=== PATIENT | male | born 1970 | race Caucasian/White ===

== ENCOUNTER → 2017-04-20 20:32 | Outpatient (CLI) | payer OTHER, SELFPAY | PROVIDERS: Family Provider Internal Medicine; PCP Internal Medicine; Visit Provider Clinical Nurse Specialist | DX: G47.30 Sleep apnea, unspecified (principal); R53.83 Other fatigue; R06.83 Snoring | CPT/HCPCS: 95810 ==

== ENCOUNTER → 2017-06-15 20:00 | Outpatient (CLI) | payer OTHER, SELFPAY | PROVIDERS: Family Provider Internal Medicine; PCP Internal Medicine; Visit Provider Clinical Nurse Specialist | DX: G47.33 Obstructive sleep apnea (adult) (pediatric) (principal) | CPT/HCPCS: 95811 ==

== ENCOUNTER 2017-09-13 19:41 | Inpatient (IN) | payer OTHER, SELFPAY ==
[2017-09-13 19:42] VITALS: BP 164/117; PULSE 150; RESP 20; TEMP 36.7; O2SAT 98; BMI 34.7
--- NOTE | 2017-09-13 19:55 | EKG12_ITS ---
Test Reason : PALPS Blood Pressure : / mmHG Vent. Rate : 134 BPM Atrial Rate : 144 BPM P-R Int : 176 ms QRS Dur : 104 ms QT Int : 288 ms P-R-T Axes : 000 -49 069 degrees QTc Int : 430 ms Atrial fibrillation Left anterior fascicular block Nonspecific T wave abnormality Abnormal ECG When compared with ECG of 12-AUG-2004 12:18, Vent. rate has increased BY 63 BPM T wave inversion now evident in Inferior leads Confirmed by CONOR HAYWOOD, ISABEL ([id number]), newspaper or periodical editor HERNAN NOVA ([id number]) on 09/15/2017 9:19:02 AM Referred By: LEAH FLANAGAN Confirmed By:ISABEL PERDOMO MD
[2017-09-13 20:03] LABS: Absolute Lymphocyte Count 1.98 X10^3/ul (0.83-4.51); Absolute Neutrophil Count 5.7 X10^3/uL (2.0-7.7); Basophil# 0.02 X10^3/uL; Basophil% 0.2 % (0-1); Eosinophil# 0.08 X10^3/uL; Eosinophils% 0.9 % (0-5); Hematocrit 45.7 % (40-54); Hemoglobin 15.9 g/dl (13.0-16.5); Lymphocyte # 1.98 X10^3/ul (4.0); Lymphocyte % 23.3 % (19-41); Mean Corp Hgb Conc 34.8 g/gl (32-36); Mean Corpuscular Hgb 31.1 pg (27.0-32.0); Mean Corpuscular Volume 89.4 fL (80-94); Monocyte# 0.72 X10^3/uL; Monocyte% 8.5 % (0-10); Neutrophil # 5.68 X10^3/uL (2.7-7.7); Neutrophil % 66.9 % (47-70); Platelet Count 164 K/mm3 (150-450); RBC Distribution Width CV 12.4 % (11.6-14.6); RBC Distribution Width SD 40.2 fl (35.1-43.9); Red Blood Count 5.11 M/mm3 (4.6-6.2); White Blood Count 8.5 K/mm3 (4.4-11.0)
[2017-09-13 20:06] LABS: POSITIVE COUNT NO; POSITIVE DIFFERENTIAL NO; POSITIVE MORPHOLOGY NO
--- NOTE | 2017-09-13 20:10 | RAD_ITS ---
STUDY: X-RAY CHEST REASON FOR EXAM: Male, 47 years old. Chest pain TECHNIQUE: Single AP portable view of the chest. COMPARISON: None. FINDINGS: The lungs are clear and expanded. There is no demonstrated pleural abnormality. There is mild cardiac enlargement. Normal mediastinum and lauryn. Normal visualized pulmonary arteries. Normal visualized aortic arch and descending thoracic aorta. Normal visualized thoracic spine. Normal visualized ribs, clavicles, and shoulders. There is no demonstrated abnormality of the visualized soft tissue structures of the upper abdomen. RAD/Chest 1 View (Portable) IMPRESSION: Mild cardiomegaly. Lungs are clear. Electronically Signed: Mynor Santos DO at 20:23 EDT Tel , Service support ,
[2017-09-13 20:12] LABS: International Normalized Ratio 1.1; Prothrombin Time (Protime)PT. 13.7 SECONDS (11.7-14.9)
[2017-09-13 20:13] LABS: Partial Thromboplast Time 26.9 Seconds (24.1-36.2)
[2017-09-13] MEDS: Aspirin 81 MG TAB.CHEW 324 MG PO (20:22)
[2017-09-13] MEDS: Metoprolol Tartrate 5 MG/5 ML Vial IV ×2 (20:23→21:44)
[2017-09-13] MEDS: Enoxaparin 100 MG/ML Syringe 140 MG SC (20:23)
[2017-09-13 20:29] LABS: Anion Gap 7 (5-15); BUN 12 mg/dL (7-18); BUN/Creat Ratio 9.7 RATIO (10-20); Chloride 105 mmol/L (98-107); Creatinine, Serum 1.24 mg/dL (0.70-1.30); EST Glomerular Filtration Rate 66 mL/min (>60); Est Glom Filt Rate - Afr Amer 80 mL/min (>60); Estimated Creatinine Clearance 94.18 ml/min; Glucose 134 mg/dL (74-106); Potassium 3.3 mmol/L (3.5-5.1); Sodium Level 141 mmol/L (136-145); Thyroid Stim Hormone (TSH) 2.05 uIU/mL (0.358-3.74)
--- NOTE | 2017-09-13 20:43 | ED.DCSUM_ITS ---
- ER Visit Summary Date of Service: 09/13/17 Chief Complaint: Not feeling well since awakening this morning History of Present Illness: The patient is a 47 M with past medical history of hypertension who presents with not feeling well since this morning. When he took his blood pressure this evening he noted was high and had a high heart rate. There is no history of atrial fibrillation. He does have history of hypertension. He has no history of PE, DVT or any risk factors. He denies any leg pain or swelling. He denies fever, chills night sweats or weight loss. He denies any ocular, visual auditory symptoms. Denies trouble with speech or swallowing. He complains of a dull midsternal ache without radiation. He does report mild shortness of breath. He denies nausea, vomiting diarrhea. He denies hematemesis, melena hematochezia. He denies dysuria, frequency, urgency hematuria. He denies paresthesia, anesthesia motor weakness. I trouble with balance or gait. Denies headache. Denies any skin lesions. Physical Examination: Vital signs remarkable for blood pressure 1 6401 17 heart rate 150. He is not febrile nor is he hypoxic. BMI is 34.7. Head is atraumatic normocephalic. Pupils are equal round reactive. Extraocular muscles are intact. TMs are pearly white with landmarks noted. Nares patent with no drainage. Posterior pharynx without erythema or exudate. Uvula is midline. There is no dysphonia or dysphasia. Trachea is midline. There is no stridor with auscultation of the neck. Heart is rapid and irregular. Lungs are clear to auscultation. He has not reproducible chest pain. Abdomen is soft nontender with no hepatosplenomegaly. Lower extremity exam is remarkable for 1+ edema, which patient states is chronic. This may be secondary to obstructive sleep apnea. He states he has been using a CPAP machine at night for the last 2 months. Test Results: EKG reveals atrial fibrillation with rapid ventricular response with a left anterior fascicular block and ossific ST-T wave changes. There is motion artifact. Portable chest x-ray interpreted by nm reveals normal cardiac silhouette and mediastinum. There is no evidence of CHF or effusion. Osseous structures appear normal. CBC is unremarkable. Electro panel reveals slight decrease potassium 3.3 slight elevation of glucose 134. Coags normal. Troponin less than 0.015. TSH normal at 2.05. Emergency Department Course and Treatment: To evaluate patient's A. fib which is new onset will obtain TSH, EKG, troponin and appropriate blood work to evaluate for hyperthyroidism, cardiac ischemia versus other cause. Since he does not know the onset cardioversion is contraindicated. Treatment Plan: Patient has received 3 doses of Lopressor IV push for rate control. He is presently on an EDY inhibitor and calcium channel krystle for his blood pressure. He also received aspirin. As of 2122 heart rate is 120. Hospitalist was paged for admission to PCU Disposition: Admit PCU stepdown Impression: 1. New onset A. fib with RVR 2. Hyperglycemia and nondiabetic 3. History of hypertension This note was generated with [employer] dictation software. It may contain incorrect words, spelling, and punctuation that were not noted in review of the chart prior to signing ED Disposition - Plan for ED Patient: Chief Complaint: Palpitations Referrals: Arlene Jj MD [Primary Care Provider] -
[2017-09-13 21:43] VITALS: BP 135/88; PULSE 119; RESP 20; O2SAT 98
[2017-09-13 22:04] VITALS: BP 136/88; PULSE 114; RESP 18; O2SAT 99
[2017-09-13 22:13] VITALS: BP 126/92; PULSE 105; RESP 20; O2SAT 97
--- NOTE | 2017-09-13 22:48 | HP.PCM_ITS ---
Problem List (1) Lightheadedness Status: Acute (2) Palpitations Status: Acute History of Present Illness Date of Admission: 09/13/17 Chief Complaint: Palpitations, lightheadedness The patient is a 47 year old M who was seen in the emergency room at [facility] with chief complaint of not feeling well today. Patient further stated that he was lightheaded, had some vague chest discomfort which she described as a tightness and he also felt palpitations. Patient denied any shortness of breath, radiation of chest discomfort into his neck or down his arms, and he denied any fevers or chills. Patient states that he has had similar feelings over the past few years at times but they have resolved spontaneously. Patient is under treatment for hypertension by his family physician and also has diagnosed sleep apnea and has been on CPAP for 2 months.. Evaluation in the emergency room included an EKG which showed the patient to be in atrial fibrillation with a heart rate of approximately 150, no ischemic changes were noted, patient had a left anterior hemiblock on his EKG with nonspecific ST-T wave changes. On examination,, lungs were clear, heart rate and rhythm was irregular, patient was alert and did not appear to be in any distress. Lab work was remarkable for a potassium of 3.3, CBC was unremarkable, troponin was less than 0.015. TSH was normal at 2.05. Patient's chest x-ray was unremarkable except for some mild cardiomegaly. Patient received 3 doses of IV Lopressor 5 mg each by the emergency room physician, his ventricular rate slowed to approximately 105-110. Patient will be admitted to PCU for new onset atrial fibrillation with rapid ventricular response, he will be given a beta-krystle, he will remain on his home medications with the exception of the Norvasc which will be changed to Cardizem (this was suggested by cardiology-Dr. Laboy-who I talked with by phone mitchell, he will be consulted to participate in the patient's care), patient will have an echocardiogram performed, and finally the patient will be placed on Xarelto for anticoagulation. Patient's cardiac enzymes will be cycled starting tomorrow morning. Past Medical History Medical History: Medical History (Last Updated 04/13/17 @ 09:40 by Martha Rainey) Hypertension I10 Allergies No Known Allergies Allergy (Verified 09/13/17 19:44) Home Medications: Ambulatory Orders Medication Instructions Recorded Amlodipine [Norvasc] 10 mg PO DAILY 04/07/17 Hydrochlorothiazide [Hctz] 12.5 mg PO DAILY 04/07/17 Lisinopril [Zestril] 40 mg PO DAILY 04/07/17 Pantoprazole Sodium [Protonix] 40 mg PO DAILY 04/07/17 Multivitamin [Daily Multiple 1 tab PO DAILY 09/13/17 Vitamin] Surgical History: Surgical History (Last Updated 04/13/17 @ 10:05 by Martha Rainey) History of cataract Z86.69 History of vasectomy Z98.52 gallbladder removed Surgical History: cataract, cholecystectomy, tonsillectomy, - - Vasectomy Psychiatric History: No pertinent psych hx Lives: Spouse/ Significant Other Smoking Status: Never smoker Tobacco Use: Non-smoker Alcohol: None Drugs: None - *Family History Maternal Family History: Family History (Last Updated 04/13/17 @ 10:06 by Martha Rainey) Mother Hypertension Diabetes Cancer History Items: Diabetes, Hypertension Paternal Family History: Family History (Last Updated 04/13/17 @ 10:06 by Martha Rainey) Mother Hypertension Diabetes Cancer History Items: No pertinent history Review of Systems Constitutional: Reports: Malaise. Denies: Anorexia, Chills, Fever, Night Sweats , Weakness, Weight Change, Fatigue Eyes: Denies: Blurred vision, Cataracts, Conjunctivae Inflammation, Double vision, Drainage HEENT: Denies: Difficulty Swallowing, Dysphasia, Ear Pain, Eye Pain, Head Aches , Hearing Changes, Nasal bleeding, Nasal Congestion, Post Nasal Drip Cardiovascular: Reports: Chest Pain, Chest Tightness, Light Headedness, Palpitations. Denies: Claudication, Chest Pressure, Edema, Heaviness, Orthopnea , Paroxysmal Noc. Dyspnea, Syncope Respiratory: Denies: Cough, Hemoptysis, Pleuritic Pain, Shortness of Breath, Shortness of breath upon exertion, Sputum production, Wheezing Gastrointestinal: Denies: Abdominal Pain, Constipation, Diarrhea, Dyspepsia, Hematemesis, Hematochezia, Nausea Genitourinary: Denies: Dysuria, Frequency, Hematuria, Incontinence, Nocturia, Retention Musculoskeletal: Denies: Back Pain, Foot Pain, Hand Pain, Joint stiffness, Joint swelling, Joint Tenderness, Leg Pain Skin: Denies: Dryness, Jaundice, Pruritis, Rash Neurological: Denies: Balance problems, Blurred vision, Double vision, Change in Speech, Slurred speech, Difficulty swallowing, Focal weakness, Headaches, Incoordination Psychiatric: Denies: Anxiety, Depression, Homicidal Ideations, Suicidal Ideations Endocrine: Denies: Change in Body Habitus, Heat/ Cold Intolerance, Polydipsia, Polyuria VTE Information - Inpt Only VTE Present on Admission: No VTE Mechan Device Prophylaxis: None VTE Pharm Prophylaxis ordered?: No Reason prophylaxis not ordered:: Medical Contraindication - Patient will be placed on full anticoagulation Patient Problems: Active and Suspected Problems (Last Updated 04/13/17 @ 09:40 by Martha Rainey) Lightheadedness (Acute) Palpitations (Acute) - Physical Exam General: Alert, Oriented x3, Cooperative, No apparent distress, Well developed, Well nourished HEENT: Atraumatic, PERRLA, EOMI, Normocephalic Oral: Moist Mucosa Neck: Supple, No JVD, Negative Carotid Bruits, No Nuchal Rigidity, Trachea Midline, Thyroid Normal Size and Texture Lungs: Clear to auscultation, Normal air movement, No rhonchi, No wheeze, No rales Cardiovascular: No murmurs, PMI Normal, Irregular Rate, No rub noted Abdomen: Bowel Sounds Present, Soft, Non Tender, No hernias noted Extremities: No clubbing, No cyanosis, No edema, Capillary Refill Less than 3 Seconds Skin: No rashes, No breakdown Musculoskeletal: No Tenderness to Palpation of Joints or Extremities Neurological: Cranial nerves II-XII grossly intact, Neuro grossly intact, Sensory exam intact to light touch and pain, Coordination normal Psych/Mental Status: Normal Affect, Appropriate, Alert and oriented to time, place, person, mood and affect Vital Signs Temp Pulse Resp BP Pulse Ox 98.0 F 105 H 20 H 126/92 H 97 09/13/17 19:42 09/13/17 22:13 09/13/17 22:13 09/13/17 22:13 09/13/17 22:13 Oxygen Flow Rate (L/min) 2 Oxygen Delivery Method Nasal Cannula Weight: 136.078 kg Body Mass Index (BMI) 34.7 Laboratory Tests Past 24 Hrs 09/13/17 09/13/17 09/13/17 19:52 19:52 19:52 WBC 8.5 RBC 5.11 Hgb 15.9 Hct 45.7 MCV 89.4 MCH 31.1 MCHC 34.8 RDW 12.4 RDW Differential 40.2 Plt Count 164 MPV 10.0 Immature Gran % (Auto) 0.200 Neut % (Auto) 66.9 Lymph % (Auto) 23.3 [place] % (Auto) 8.5 Eos % (Auto) 0.9 Baso % (Auto) 0.2 Absolute Neuts (auto) 5.7 Absolute Lymphs (auto) 1.98 Total Counted Not Reportable PT 13.7 INR 1.1 APTT 26.9 Sodium 141 Potassium 3.3 L Chloride 105 Carbon Dioxide 29.0 Anion Gap 7 BUN 12 Creatinine 1.24 Estim Creat Clear Calc 94.18 Est GFR (MDRD) Af Amer 80 Est GFR (MDRD) Non-Af 66 BUN/Creatinine Ratio 9.7 L Glucose 134 H Calcium 9.0 Troponin I < 0.015 TSH 2.05 Assessment/Plan All Active Problems (Last Updated 04/13/17 @ 09:40 by Martha Rainey) Lightheadedness (Acute) Palpitations (Acute) #1 new onset atrial fibrillation with rapid ventricular response-patient will be admitted to PCU, he will be placed on Xarelto, metoprolol, and his amlodipine will be changed to Cardizem 60 mg every 6 hours. Patient's other blood pressure medications will remain the same, he will be seen in consultation by cardiology, he will have an echocardiogram performed, and his cardiac enzymes will be cycled. Patient will also have a magnesium drawn #2 hypertension-again patient's medications will be changed slightly for his blood pressure due to his atrial fibrillation #3 obstructive sleep apnea-patient can use his own CPAP I requested his bring it into the hospital for him to use. #4 hypokalemia-probably secondary to hydrochlorothiazide usage, patient will be given potassium replacement and labs will be rechecked I spent some time talking to the patient and the patient's about treatment options regarding his atrial fibrillation and the need to have the patient on full anticoagulation. Patient understands the risks of the atrial fibrillation including stroke. Code Visit Inpatient E&M: 66176 Init Hosp L3
--- NOTE | 2017-09-13 22:52 | NURSING ---
ED charge entry clerk called, okay to bring patient to floor at this time
--- NOTE | 2017-09-13 23:11 | ECHOD_ITS ---
Reason For Study: AFIB/FLUTTER Procedure This was a 2D Doppler, Color Flow transthoracic echocardiogram. Exam performed portable in patient room. Left Ventricle Normal LV size. Moderate concentric left ventricular hypertrophy. Mild global left ventricular systolic dysfunction. The estimated ejection fraction is 45 %. Unable to assess diastolic dysfunction due to arrhythmia. There is mild global hypokinesis of the left ventricle. Right Ventricle Normal RV size. Normal systolic function. Atria Normal left atrium. Normal right atrium. Mitral Valve Normal mitral valve. Tricuspid Valve Normal tricuspid valve. Mild tricuspid valve insufficiency. Aortic Valve Trisinus/trileaflet aortic valve. Pulmonic Valve Normal pulmonic valve. Mild (1+) pulmonic valve insufficiency. Great Vessels Normal aortic root. The pulmonary artery is normal size. Normal inferior vena cava. Pericardium/Pleural No pericardial effusion. MMode/2D Measurements & Calculations LVIDd: 4.7 cm IVSd: 1.6 cm Ao root diam: 3.4 cm LVIDs: 3.8 cm LVPWd: 1.5 cm LA dimension: 4.0 cm RVDd: 3.5 cm FS: 19.6 % LAV(MOD-bp): 63.6 ml LA A4 area: 19.5 cm2 RA A4 area: 10.0 cm2 LAV(MOD-sp2): 69.4 ml LAV(MOD-sp4): 56.1 ml Doppler Measurements & Calculations MV E max ugo: 77.4 cm/sec Lat Peak E' Ugo: 12.6 cm/sec Med Peak E' Ugo: 10.4 cm/sec E/E' lat: 6.2 E/E' med: 7.4 Ao V2 max: 101.8 cm/sec LV V1 max: 89.4 cm/sec PA V2 max: 78.0 cm/sec Ao max P.2 mmHg LV V1 max P.2 mmHg PI end-d ugo: 93.4 cm/sec TR max ugo: 184.9 cm/sec TR max P.7 mmHg Interpretation Summary Normal LV size. Moderate concentric left ventricular hypertrophy. Mild global left ventricular systolic dysfunction. The estimated ejection fraction is 45 %. Unable to assess diastolic dysfunction due to arrhythmia. Ordering Physician: Serafin Deleon Referring Physician: Arlene Jj M.D. Performed By: Azucena Carter RDCS, RVT
[2017-09-13 23:20] VITALS: BP 125/81; PULSE 71; RESP 18; TEMP 36.9; O2SAT 96
[2017-09-13 23:26] VITALS: BMI 36.3
[2017-09-13 23:29] VITALS: BMI 36.3
[2017-09-13 23:31] VITALS: PULSE 105
[2017-09-14] VITALS (17 sets, daily range): BP systolic 118–129; BP diastolic 56–84; PULSE 68–145; RESP 18; TEMP 36.7–37.2; O2SAT 96–98
[2017-09-14] MEDS: Metoprolol Tartrate 25 MG Tablet PO ×2 (00:24→09:06)
[2017-09-14] MEDS: dilTIAZem 60 MG Tablet PO ×5 (00:24→23:01)
[2017-09-14] MEDS: Rivaroxaban 15 MG Tablet PO (08:09)
[2017-09-14 08:15] LABS: Anion Gap 6 (5-15); BUN 13 mg/dL (7-18); BUN/Creat Ratio 11.5 RATIO (10-20); Calcium,Total 8.8 mg/dL (8.5-10.1); Chloride 108 mmol/L (98-107); Cholesterol 133 mg/dL (200); Creatinine, Serum 1.13 mg/dL (0.70-1.30); EST Glomerular Filtration Rate 74 mL/min (>60); Est Glom Filt Rate - Afr Amer 89 mL/min (>60); Estimated Creatinine Clearance 103.35 ml/min; Glucose 96 mg/dL (74-106); High Density Lipoprotein 28 mg/dL; Magnesium 2.3 mg/dL (1.6-2.6); Sodium Level 144 mmol/L (136-145); Triglycerides 147 mg/dL; Very Low Density Lipoprotein 29 mg/dL (5-40)
[2017-09-14] MEDS: Lisinopril 40 MG Tablet PO (09:04)
[2017-09-14] MEDS: Pantoprazole Sodium 40 MG Tablet PO (09:04)
[2017-09-14] MEDS: HYDROCHLOROTHIAZIDE 12.5 MG CAPSULE PO (09:04)
--- NOTE | 2017-09-14 12:08 | CASEMGMT ---
This RN CM to room to complete CM assessment and Dr. Laboy is at bedside at this time. Will attempt again later. Opal RN CM
--- NOTE | 2017-09-14 12:40 | CON.PCM_ITS ---
Problem List (1) A-fib Status: Acute Reason for Consult Date of Consultation: 09/14/17 History of Present Illness: The patient is a 47 year old M with past medical history significant for sleep apnea and hypertension. He presented to the emergency room with complaints of palpitations yesterday. According to him, he felt his heart racing. Also felt tightness in his chest with it. Denies any radiation to the arms, neck or jaw. No associated shortness of breath. In the emergency room, he was noted to be in atrial fibrillation with rapid ventricular response at around 1 50/min. He was treated with beta blockers and then started on p.o. calcium channel blockers and beta-blockers. With slowing of his heart rate, his tightness in the chest has resolved. Denies any complaints at present. According to the patient, he may have had palpitations on a few other occasions over the last few years. Not very specific about that. He does describe a history of vasovagal syncope such as with blood draws and needle sticks. Denies any history of TIA or CVA. History of any vascular problems. Denies any orthopnea or PND. Denies any ankle edema. No history of CHF. Lately he has been using a CPAP machine at night for his obstructive sleep apnea. Denies any abnormal bleeding. No history of peptic ulcers. No history of melena or hematemesis. No history of falls [] Past Medical History Allergies/Adverse Reactions: Allergies No Known Allergies Allergy (Verified 09/13/17 19:44) Home Medications: Ambulatory Orders Medication Instructions Recorded Amlodipine [Norvasc] 10 mg PO DAILY 04/07/17 Hydrochlorothiazide [Hctz] 12.5 mg PO DAILY 04/07/17 Lisinopril [Zestril] 40 mg PO DAILY 04/07/17 Pantoprazole Sodium [Protonix] 40 mg PO DAILY 04/07/17 Multivitamin [Daily Multiple 1 tab PO DAILY 09/13/17 Vitamin] Surgical History: cataract, cholecystectomy, tonsillectomy, - - Vasectomy Psychiatric History: No pertinent psych hx - *Family History Maternal Family History: Family History (Last Updated 04/13/17 @ 10:06 by Martha Rainey) Mother Hypertension Diabetes Cancer History Items: Diabetes, Hypertension Paternal Family History: Family History (Last Updated 04/13/17 @ 10:06 by Martha Rainey) Mother Hypertension Diabetes Cancer History Items: No pertinent history Lives: Spouse/ Significant Other Smoking Status: Never smoker Tobacco Use: Non-smoker Alcohol: None Drugs: None Review of Systems - Review of Systems General: Denies: Fever, Chills, Weight Loss HEENT: Denies: Head Aches, Sore Throat Cardiovascular: Reports: Chest Tightness - As noted in history of presenting illness, Palpitations, Lightheadedness - Health lightheaded with his palpitations yesterday, Dizziness. Denies: Shortness of Breath, Orthopnea, PND , Peripheral Edema Gastrointestinal: Denies: Abdominal Discomfort, Jaundice, Emesis, Hematemesis, Melena Muscoloskeletal: Denies: Myalgias Neurological: Denies: History of TIA, History of CVA Endocrine: Denies: Heat Intolerance, Cold Intolerance Hematologic/ Lymphatic: Denies: Anemia, Easy Brusing, Easy Bleeding Subjectve: Comfortable. No apparent distress Objective: Vital Signs Temp Pulse Resp BP Pulse Ox 98.4 F 100 18 118/56 L 96 09/14/17 09:13 09/14/17 11:06 09/14/17 09:13 09/14/17 09:13 09/14/17 09:13 Oxygen Delivery Method Room Air Weight: 142.5 kg Body Mass Index (BMI) 36.3 Intake and Output for Last 24 Hours 09/12/17 09/13/17 09/14/17 23:59 23:59 23:59 Intake Total 0 / 0 1260 / 1260 Balance 0 / 0 1260 / 1260 General: Healthy Appearing, Awake, Alert, Oriented x 3, No Acute Distress HEENT: Atraumatic, Normocephalic Oral: Moist Mucosa Neck: Supple, No JVD Lungs: Clear to auscultation Cardiovascular: Irregular Rhythm, Normal S1, Normal S2 Vascular: No Carotid Bruits Abdomen: Bowel Sounds Present, Soft Extremities: No edema Neurological: No Focal Motor or Sensory Deficit Psych/Mental Status: Appropriate 09/14/17 02:05: Troponin I < 0.015 09/14/17 04:56: Troponin I < 0.015 09/14/17 07:40: Sodium 144, Potassium 4.0, Chloride 108 H, Carbon Dioxide 30.0, Anion Gap 6, BUN 13, Creatinine 1.13, Est GFR (MDRD) Af Amer 89, Est GFR (MDRD) Non-Af 74, BUN/Creatinine Ratio 11.5, Glucose 96, Calcium 8.8, Magnesium 2.3, Troponin I < 0.015, Triglycerides 147, Cholesterol 133, LDL Cholesterol 76, VLDL Cholesterol 29, HDL Cholesterol 28 L Rhythm: Atrial fibrillation. Ventricular rate ranging between 90-110 bpm EKG: Atrial fibrillation with rapid ventricular response yesterday. ECHO: Pending Assessment/Plan 1. Atrial fibrillation with rapid ventricular response. New onset. However could have been paroxysmal as history of palpitations on rare occasions in the past few years. Agree with diltiazem. Change to longer acting in the morning if tolerates the dose. Increase beta-krystle to 50 mg every 8 hours. Echo is pending. Patient's CHADS-2 VASC score is 1 at present. Patient has been started on anticoagulation. Change to Eliquis. Given his risk, long-term he will need only a regular aspirin every day. I discussed CLARA cardioversion with the patient. Risks benefits alternatives explained. He understands and wishes to think about it. If he agrees for it, we will request Dr. Ibarra to perform the CLARA cardioversion in the morning 2. Hypertension. Controlled. Patient started on diltiazem and metoprolol as noted above. Decrease lisinopril to 20 mg once daily next 3. History of obstructive sleep apnea. On nocturnal CPAP. Counseled to lose weight 4. Await echocardiogram 5. Patient's chest tightness was probably related to his tachycardia with atrial fibrillation with rapid ventricular response. However will recommend a stress test at a later stage to evaluate for coronary ischemia
--- NOTE | 2017-09-14 13:13 | CASEMGMT ---
Face to Face with patient for initial transition planning/care coordination assessment. BAIRON CHAN introduced self and role at [facility], pt voices understanding and consents to assessment at this time. Pt is sitting up in bed in no distress at this time. Pt is A/O x4 at this time and answers all questions appropriately at this time. Care providers, pharmacy, and demographics verified. See attached link. Pt voices no further concerns/needs at this time. Advised pt to ask for CM if any further questions/concerns/needs arise, voices understanding. SW to speak with pt regarding advanced directives. PLAN: [place] BAIRON CHAN
--- NOTE | 2017-09-14 14:09 | PCM.PROGNOTE ---
<Michael Douglass - Last Filed: 09/14/17 14:09> Patient Problems: Active and Suspected Problems (Last Updated 04/13/17 @ 09:40 by Martha Rainey) Lightheadedness (Acute) Palpitations (Acute) A-fib (Acute) Subjective: Pt has been having episodes of feeling unusual with chest pressure, no explicit palpitations noted. No CP or SOB currently. Rate is still mildly high as of this AM. No hx AF. No hx valve issues. No LE edema. No fever or chills. No cough/dysuria/diarrhea, recent illness. He will undergo CLARA/Cardioversion tomorrow. - Physical Exam General: Alert, Oriented x3, Cooperative HEENT: Atraumatic, PERRLA, EOMI, Normocephalic Neck: Supple, No JVD, Negative Carotid Bruits Lungs: Clear to auscultation, Normal air movement Cardiovascular: Irregular Rate, Tachycardic Abdomen: Bowel Sounds Present, Soft, Non Tender Extremities: No edema, Capillary Refill Less than 3 Seconds Skin: No rashes, No breakdown Musculoskeletal: No Tenderness to Palpation of Joints or Extremities Neurological: Cranial nerves II-XII grossly intact Psych/Mental Status: Normal Affect, Appropriate Vital Signs Temp Pulse Resp BP Pulse Ox 98.4 F 100 18 118/56 L 96 09/14/17 09:13 09/14/17 11:06 09/14/17 09:13 09/14/17 09:13 09/14/17 09:13 Oxygen Delivery Method Room Air Weight: 142.5 kg Body Mass Index (BMI) 36.3 Intake and Output for Last 24 Hours 09/12/17 09/13/17 09/14/17 23:59 23:59 23:59 Intake Total 0 / 0 1260 / 1260 Balance 0 / 0 1260 / 1260 Laboratory Tests Past 24 Hrs 09/14/17 09/14/17 09/14/17 02:05 04:56 07:40 Sodium 144 Potassium 4.0 Chloride 108 H Carbon Dioxide 30.0 Anion Gap 6 BUN 13 Creatinine 1.13 Estim Creat Clear Calc 103.35 Est GFR (MDRD) Af Amer 89 Est GFR (MDRD) Non-Af 74 BUN/Creatinine Ratio 11.5 Glucose 96 Calcium 8.8 Magnesium 2.3 Troponin I < 0.015 < 0.015 < 0.015 Triglycerides 147 Cholesterol 133 LDL Cholesterol 76 VLDL Cholesterol 29 HDL Cholesterol 28 L Medical Necessity - Tobacco Use Smoking Status: Never smoker Tobacco Use: Non-smoker Assessment/Plan All Active Problems (Last Updated 04/13/17 @ 09:40 by Martha Rainey) Lightheadedness (Acute) Palpitations (Acute) A-fib (Acute) 1. New onset AF with RVR - cardiology following. Continue Cardizem, metoprolol, eliquis. rate improving. CLARA/Cardioversion in AM. Troponin neg x 4. TSH normal. 2. HTN - stable off norvasc and hctz. 3. ALCIRA - CPAP qhs. 4. Hypokalemia - resolved with DC of hctz. DVT ppx: eliquis DC planning: plan for home if stable post cardioversion This patient was seen by Michael Douglass PA-C under the supervision of Doctor Arslan. <Gerard Mcdaniels - Last Filed: 09/14/17 15:21> - Physical Exam General: Alert, Cooperative HEENT: Atraumatic, Normocephalic Lungs: Clear to auscultation, Normal air movement Cardiovascular: Irregular Rate, Tachycardic Abdomen: Bowel Sounds Present, Soft, Non Tender, Non-Distended Extremities: No edema, No Calf Tenderness Skin: No rashes, No breakdown Musculoskeletal: No Tenderness to Palpation of Joints or Extremities, No Muscle Wasting Psych/Mental Status: Normal Affect, Appropriate Vital Signs Temp Pulse Resp BP Pulse Ox 36.9 C 96 18 118/56 L 96 09/14/17 09:13 09/14/17 15:10 09/14/17 09:13 09/14/17 09:13 09/14/17 09:13 Oxygen Delivery Method Room Air Weight: 142.5 kg Body Mass Index (BMI) 36.3 Intake and Output for Last 24 Hours 09/12/17 09/13/17 09/14/17 23:59 23:59 23:59 Intake Total 0 / 0 1260 / 1260 Balance 0 / 0 1260 / 1260 Laboratory Tests Past 24 Hrs 09/14/17 09/14/17 09/14/17 02:05 04:56 07:40 Sodium 144 Potassium 4.0 Chloride 108 H Carbon Dioxide 30.0 Anion Gap 6 BUN 13 Creatinine 1.13 Estim Creat Clear Calc 103.35 Est GFR (MDRD) Af Amer 89 Est GFR (MDRD) Non-Af 74 BUN/Creatinine Ratio 11.5 Glucose 96 Calcium 8.8 Magnesium 2.3 Troponin I < 0.015 < 0.015 < 0.015 Triglycerides 147 Cholesterol 133 LDL Cholesterol 76 VLDL Cholesterol 29 HDL Cholesterol 28 L Assessment/Plan Patient seen and examined independently. Data reviewed. I agree with the above note by the physician healthcare administrative assistant. 1. Atrial fibrillation with RVR Still in A. fib/flutter Plan is for CLARA cardioversion on the Patient states that he has had similar episodes but less severe in the past but was never evaluated for this. Presumably, these may have been atrial fibrillation episodes. continue with diltiazem, metoprolol Anticoagulation with Eliquis Code Visit Inpatient E&M: 67500 Subs Hosp L2
--- NOTE | 2017-09-14 14:14 | PN_ITS ---
<Michael Douglass - Last Filed: 09/14/17 14:09> Patient Problems: Active and Suspected Problems (Last Updated 04/13/17 @ 09:40 by Martha Rainey) Lightheadedness (Acute) Palpitations (Acute) A-fib (Acute) Subjective: Pt has been having episodes of feeling unusual with chest pressure, no explicit palpitations noted. No CP or SOB currently. Rate is still mildly high as of this AM. No hx AF. No hx valve issues. No LE edema. No fever or chills. No cough /dysuria/diarrhea, recent illness. He will undergo CLARA/Cardioversion tomorrow. - Physical Exam General: Alert, Oriented x3, Cooperative HEENT: Atraumatic, PERRLA, EOMI, Normocephalic Neck: Supple, No JVD, Negative Carotid Bruits Lungs: Clear to auscultation, Normal air movement Cardiovascular: Irregular Rate, Tachycardic Abdomen: Bowel Sounds Present, Soft, Non Tender Extremities: No edema, Capillary Refill Less than 3 Seconds Skin: No rashes, No breakdown Musculoskeletal: No Tenderness to Palpation of Joints or Extremities Neurological: Cranial nerves II-XII grossly intact Psych/Mental Status: Normal Affect, Appropriate Vital Signs Temp Pulse Resp BP Pulse Ox 98.4 F 100 18 118/56 L 96 09/14/17 09:13 09/14/17 11:06 09/14/17 09:13 09/14/17 09:13 09/14/17 09:13 Oxygen Delivery Method Room Air Weight: 142.5 kg Body Mass Index (BMI) 36.3 Intake and Output for Last 24 Hours 09/12/17 09/13/17 09/14/17 23:59 23:59 23:59 Intake Total 0 / 0 1260 / 1260 Balance 0 / 0 1260 / 1260 Laboratory Tests Past 24 Hrs 09/14/17 09/14/17 09/14/17 02:05 04:56 07:40 Sodium 144 Potassium 4.0 Chloride 108 H Carbon Dioxide 30.0 Anion Gap 6 BUN 13 Creatinine 1.13 Estim Creat Clear Calc 103.35 Est GFR (MDRD) Af Amer 89 Est GFR (MDRD) Non-Af 74 BUN/Creatinine Ratio 11.5 Glucose 96 Calcium 8.8 Magnesium 2.3 Troponin I < 0.015 < 0.015 < 0.015 Triglycerides 147 Cholesterol 133 LDL Cholesterol 76 VLDL Cholesterol 29 HDL Cholesterol 28 L Medical Necessity - Tobacco Use Smoking Status: Never smoker Tobacco Use: Non-smoker Assessment/Plan All Active Problems (Last Updated 04/13/17 @ 09:40 by Martha Rainey) Lightheadedness (Acute) Palpitations (Acute) A-fib (Acute) 1. New onset AF with RVR - cardiology following. Continue Cardizem, metoprolol, eliquis. rate improving. CLARA/Cardioversion in AM. Troponin neg x 4. TSH normal. 2. HTN - stable off norvasc and hctz. 3. ALCIRA - CPAP qhs. 4. Hypokalemia - resolved with DC of hctz. DVT ppx: eliquis DC planning: plan for home if stable post cardioversion This patient was seen by Michael Douglass PA-C under the supervision of Doctor Arslan. <Gerard Mcdaniels - Last Filed: 09/14/17 15:21> - Physical Exam General: Alert, Cooperative HEENT: Atraumatic, Normocephalic Lungs: Clear to auscultation, Normal air movement Cardiovascular: Irregular Rate, Tachycardic Abdomen: Bowel Sounds Present, Soft, Non Tender, Non-Distended Extremities: No edema, No Calf Tenderness Skin: No rashes, No breakdown Musculoskeletal: No Tenderness to Palpation of Joints or Extremities, No Muscle Wasting Psych/Mental Status: Normal Affect, Appropriate Vital Signs Temp Pulse Resp BP Pulse Ox 36.9 C 96 18 118/56 L 96 09/14/17 09:13 09/14/17 15:10 09/14/17 09:13 09/14/17 09:13 09/14/17 09:13 Oxygen Delivery Method Room Air Weight: 142.5 kg Body Mass Index (BMI) 36.3 Intake and Output for Last 24 Hours 09/12/17 09/13/17 09/14/17 23:59 23:59 23:59 Intake Total 0 / 0 1260 / 1260 Balance 0 / 0 1260 / 1260 Laboratory Tests Past 24 Hrs 09/14/17 09/14/17 09/14/17 02:05 04:56 07:40 Sodium 144 Potassium 4.0 Chloride 108 H Carbon Dioxide 30.0 Anion Gap 6 BUN 13 Creatinine 1.13 Estim Creat Clear Calc 103.35 Est GFR (MDRD) Af Amer 89 Est GFR (MDRD) Non-Af 74 BUN/Creatinine Ratio 11.5 Glucose 96 Calcium 8.8 Magnesium 2.3 Troponin I < 0.015 < 0.015 < 0.015 Triglycerides 147 Cholesterol 133 LDL Cholesterol 76 VLDL Cholesterol 29 HDL Cholesterol 28 L Assessment/Plan Patient seen and examined independently. Data reviewed. I agree with the above note by the physician stores assistant. 1. Atrial fibrillation with RVR * Still in A. fib/flutter * Plan is for CLARA cardioversion on the * Patient states that he has had similar episodes but less severe in the past but was never evaluated for this. Presumably, these may have been atrial fibrillation episodes. * continue with diltiazem, metoprolol * Anticoagulation with Eliquis Code Visit Inpatient E&M: 82103 Subs Hosp L2
[2017-09-14] MEDS: Metoprolol Tartrate 50 MG Tablet PO ×2 (15:52→21:51)
--- NOTE | 2017-09-14 16:18 | CASEMGMT ---
Social Work Received referral from RN DUSTIN that pt is interested in advance directives. Met with pt and in pt room and provided information on advance directives. You have a right booklet provided as well as blank documents. SW explained that SW will be available to assist with completing and pt states he would just like to review the information. SW will remain available should further needs arise. Senia Blankenship, DULCE
[2017-09-14] MEDS: 0.9% NaCl Peripheral Flush Adult/Peds IV (20:15)
--- NOTE | 2017-09-14 23:10 | EKG12_ITS ---
Test Reason : RHYTHM CHANGE Blood Pressure : / mmHG Vent. Rate : 060 BPM Atrial Rate : 060 BPM P-R Int : 184 ms QRS Dur : 100 ms QT Int : 432 ms P-R-T Axes : 040 -30 085 degrees QTc Int : 432 ms Normal sinus rhythm Left axis deviation Abnormal ECG When compared with ECG of 13-SEP-2017 19:51, MANUAL COMPARISON REQUIRED, DATA IS UNCONFIRMED Confirmed by CONOR HAYWOOD, IASBEL ([id number]), school photograph editor MARIA LUZ VALDES ([id number]) on 09/18/2017 3:17:19 PM Referred By: KARLOS Confirmed By:ISABEL PERDOMO MD
[2017-09-15] VITALS (8 sets, daily range): BP systolic 109–137; BP diastolic 63–86; PULSE 51–80; RESP 14–18; TEMP 36.5–36.8; O2SAT 97–100; BMI 36.3
--- NOTE | 2017-09-15 05:55 | EKG12_ITS ---
Test Reason : AM EKG Blood Pressure : / mmHG Vent. Rate : 065 BPM Atrial Rate : 065 BPM P-R Int : 194 ms QRS Dur : 096 ms QT Int : 430 ms P-R-T Axes : 052 -29 098 degrees QTc Int : 447 ms Normal sinus rhythm with sinus arrhythmia Normal ECG When compared with ECG of 14-SEP-2017 23:15, MANUAL COMPARISON REQUIRED, DATA IS UNCONFIRMED Confirmed by CONOR HAYWOOD, ISABEL ([id number]), assistant production editor MARIA LUZ VALDES ([id number]) on 09/18/2017 3:17:07 PM Referred By: MARGARITO Confirmed By:ISABEL PERDOMO MD
[2017-09-15] MEDS: APIXABAN 5 MG TABLET PO (06:57)
--- NOTE | 2017-09-15 07:02 | PCM.PN.CARD ---
Subjectve: Patient seen and evaluated. Appears to be doing well. Has converted back to sinus rhythm. Objective: Vital Signs Temp Pulse Resp BP Pulse Ox 97.7 F L 56 L 14 109/75 97 09/15/17 03:48 09/15/17 05:49 09/15/17 03:48 09/15/17 05:49 09/15/17 03:48 Oxygen Delivery Method Room Air Weight: 314 lb 2.539 oz Body Mass Index (BMI) 36.3 Intake and Output for Last 24 Hours 09/13/17 09/14/17 09/15/17 23:59 23:59 23:59 Intake Total 0 / 0 2094 Balance 0 / 0 2094 General: Awake, Alert, Oriented x 3 HEENT: PERRL, EOMI, Sclera Non Icteric Neck: Supple, Good ROM, No Lymph Node Enlargement Lungs: Clear to auscultation Cardiovascular: Regular Rhythm, Normal S1, Normal S2, No Murmurs, No Rubs, No Gallops Vascular: No Carotid Bruits, Normal Femoral Pulses, Normal Radial Pulses, Normal Dorsalis Pedal Pulse, Normal Posterior Tibial Pulses Abdomen: Bowel Sounds Present, Soft, Non Tender, No HSM, No Organomegaly Extremities: No Cyanosis, No Clubbing, No edema Neurological: No Focal Motor or Sensory Deficit 09/14/17 07:40: Sodium 144, Potassium 4.0, Chloride 108 H, Carbon Dioxide 30.0, Anion Gap 6, BUN 13, Creatinine 1.13, Est GFR (MDRD) Af Amer 89, Est GFR (MDRD) Non-Af 74, BUN/Creatinine Ratio 11.5, Glucose 96, Calcium 8.8, Magnesium 2.3, Troponin I < 0.015, Triglycerides 147, Cholesterol 133, LDL Cholesterol 76, VLDL Cholesterol 29, HDL Cholesterol 28 L Rhythm: EKG: ECHO: Stress Test: Cardiac Cath: PCI: CT Surgery: Holter monitor: EPS: PPM: CXR: Chest CT Scan: Medical Necessity - Tobacco Use Smoking Status: Never smoker Tobacco Use: Non-smoker Assessment/Plan 1. Atrial fibrillation with rapid ventricular response. New onset. However could have been paroxysmal as history of palpitations on rare occasions in the past few years. Patient converted back to sinus rhythm overnight. Recommendation will be to continue Eliquis for a month and would also put on Toprol once a day. His echocardiogram demonstrated mildly reduced global left ventricular systolic function estimated ejection fraction of 45%. 2. Hypertension. Controlled. We will continue lisinopril at 20 mg, with hydrochlorothiazide at 12.5 mg and add Toprol-XL 50 mg a day. 3. History of obstructive sleep apnea. On nocturnal CPAP. Counseled to lose weight Would recommend discharge later today for outpatient follow-up in my office.
[2017-09-15] MEDS: HYDROCHLOROTHIAZIDE 12.5 MG CAPSULE PO (09:51)
[2017-09-15] MEDS: Lisinopril 40 MG Tablet 20 MG PO (09:51)
[2017-09-15] MEDS: Metoprolol(XL)Succ 50 MG Tablet PO (09:57)
[2017-09-15] MEDS: Pantoprazole Sodium 40 MG Tablet PO (09:58)
--- NOTE | 2017-09-15 13:28 | PCM.PN.HOSP ---
Patient Problems: Active and Suspected Problems (Last Updated 04/13/17 @ 09:40 by Martha Rainey) Lightheadedness (Acute) Palpitations (Acute) A-fib (Acute) Subjective: Heart rhythm converted to normal sinus rhythm spontaneously. Patient denies any chest pain or shortness of breath. Vitals/I&O's: Vital Signs Temp Pulse Resp BP Pulse Ox 36.6 C 80 18 119/71 98 09/15/17 09:47 09/15/17 11:10 09/15/17 09:47 09/15/17 09:57 09/15/17 09:47 Oxygen Delivery Method Room Air Weight: 142.5 kg Body Mass Index (BMI) 36.3 Intake and Output for Last 24 Hours 09/13/17 09/14/17 09/15/17 23:59 23:59 23:59 Intake Total 0 / 0 2094 / 2094 525 / 525 Balance 0 / 0 2094 525 / 525 General: Alert, No apparent distress HEENT: Atraumatic, Normocephalic Neck: No Nodes, Thyroid Normal Size and Texture Lungs: Clear to auscultation, Normal air movement, No rhonchi, No wheeze Cardiovascular: Regular rate, Regular Rhythm, Normal S1, Normal S2, No murmurs Abdomen: Bowel Sounds Present, Soft, Non Tender, Non-Distended, No Hepato-splenomegaly Extremities: No edema, No Calf Tenderness Psych/Mental Status: Normal Affect, Appropriate Current Medications Acetaminophen (Tylenol) 650 mg PO Q6H PRN PRN PRN Reason: Mild Pain (1-3)/Temp > 100.7 F Apixaban (Eliquis) 5 mg PO BID [facility] Last Admin: 09/15/17 06:57 Dose: 5 mg Hydrochlorothiazide (Hydrochlorothiazide) 12.5 mg PO DAILY [facility] Last Admin: 09/15/17 09:51 Dose: 12.5 mg Sodium Chloride () 250 mls @ 15 mls/hr IV .[id number] PRN PRN Reason: SALINE FLUSH Sodium Chloride () 1,000 mls @ 15 mls/hr IV .Q48H JEF PRN Reason: KVO Last Admin: 09/15/17 06:56 Dose: Not Given Lisinopril (Zestril) 20 mg PO DAILY [facility] Last Admin: 09/15/17 09:51 Dose: 20 mg Metoprolol Succinate (Toprol Xl (Beta Tu)) 50 mg PO DAILY [facility] Last Admin: 09/15/17 09:57 Dose: 50 mg Ondansetron HCl (Zofran) 4 mg IV Q8H PRN PRN PRN Reason: NAUSEA Pantoprazole Sodium (Protonix) 40 mg PO DAILY [facility] Last Admin: 09/15/17 09:58 Dose: 40 mg Sodium Chloride () 5 - 30 ml IV UD PRN PRN Reason: SALINE FLUSH Last Admin: 09/14/17 20:15 Dose: 10 ml Medical Necessity - Tobacco Use Smoking Status: Never smoker Tobacco Use: Non-smoker Assessment/Plan All Active Problems (Last Updated 04/13/17 @ 09:40 by Martha Rainey) Lightheadedness (Acute) Palpitations (Acute) A-fib (Acute) 1. Atrial fibrillation with RVR Still in A. fib/flutter Converted to normal sinus rhythm Patient states that he has had similar episodes but less severe in the past but was never evaluated for this. Presumably, these may have been atrial fibrillation episodes. continue with diltiazem, metoprolol Anticoagulation with Eliquis Follow-up with cardiology as outpatient
--- NOTE | 2017-09-15 13:32 | PN_ITS ---
Patient Problems: Active and Suspected Problems (Last Updated 04/13/17 @ 09:40 by Martha Rainey) Lightheadedness (Acute) Palpitations (Acute) A-fib (Acute) Subjective: Heart rhythm converted to normal sinus rhythm spontaneously. Patient denies any chest pain or shortness of breath. Vitals/I&O's: Vital Signs Temp Pulse Resp BP Pulse Ox 36.6 C 80 18 119/71 98 09/15/17 09:47 09/15/17 11:10 09/15/17 09:47 09/15/17 09:57 09/15/17 09:47 Oxygen Delivery Method Room Air Weight: 142.5 kg Body Mass Index (BMI) 36.3 Intake and Output for Last 24 Hours 09/13/17 09/14/17 09/15/17 23:59 23:59 23:59 Intake Total 0 / 0 2094 / 2094 525 / 525 Balance 0 / 0 2094 525 / 525 General: Alert, No apparent distress HEENT: Atraumatic, Normocephalic Neck: No Nodes, Thyroid Normal Size and Texture Lungs: Clear to auscultation, Normal air movement, No rhonchi, No wheeze Cardiovascular: Regular rate, Regular Rhythm, Normal S1, Normal S2, No murmurs Abdomen: Bowel Sounds Present, Soft, Non Tender, Non-Distended, No Hepato- splenomegaly Extremities: No edema, No Calf Tenderness Psych/Mental Status: Normal Affect, Appropriate Current Medications Acetaminophen (Tylenol) 650 mg PO Q6H PRN PRN PRN Reason: Mild Pain (1-3)/Temp > 100.7 F Apixaban (Eliquis) 5 mg PO BID [facility] Last Admin: 09/15/17 06:57 Dose: 5 mg Hydrochlorothiazide (Hydrochlorothiazide) 12.5 mg PO DAILY [facility] Last Admin: 09/15/17 09:51 Dose: 12.5 mg Sodium Chloride () 250 mls @ 15 mls/hr IV .[id number] PRN PRN Reason: SALINE FLUSH Sodium Chloride () 1,000 mls @ 15 mls/hr IV .Q48H JEF PRN Reason: KVO Last Admin: 09/15/17 06:56 Dose: Not Given Lisinopril (Zestril) 20 mg PO DAILY [facility] Last Admin: 09/15/17 09:51 Dose: 20 mg Metoprolol Succinate (Toprol Xl (Beta Tu)) 50 mg PO DAILY [facility] Last Admin: 09/15/17 09:57 Dose: 50 mg Ondansetron HCl (Zofran) 4 mg IV Q8H PRN PRN PRN Reason: NAUSEA Pantoprazole Sodium (Protonix) 40 mg PO DAILY [facility] Last Admin: 09/15/17 09:58 Dose: 40 mg Sodium Chloride () 5 - 30 ml IV UD PRN PRN Reason: SALINE FLUSH Last Admin: 09/14/17 20:15 Dose: 10 ml Medical Necessity - Tobacco Use Smoking Status: Never smoker Tobacco Use: Non-smoker Assessment/Plan All Active Problems (Last Updated 04/13/17 @ 09:40 by Martha Rainey) Lightheadedness (Acute) Palpitations (Acute) A-fib (Acute) 1. Atrial fibrillation with RVR * Still in A. fib/flutter * Converted to normal sinus rhythm * Patient states that he has had similar episodes but less severe in the past but was never evaluated for this. Presumably, these may have been atrial fibrillation episodes. * continue with diltiazem, metoprolol * Anticoagulation with Eliquis * Follow-up with cardiology as outpatient
--- NOTE | 2017-09-15 13:35 | PCM.DC ---
- Discharge Diagnoses Current Active Problems: Current Active and Chronic Problems (Last Updated 04/13/17 @ 09:40 by Martha Rainey) Lightheadedness (Acute) Palpitations (Acute) A-fib (Acute) You will use the following diet at home:: Cardiac Your food should be the consistency of: Regular Your liquids should be the consistency of: Regular/Thin Discharge Activity: Return to Normal Activity Call your doctor if you observe: Shortness of breath, Chest pain, Increased palpitations (irregular heartbeat) Allergies/Adverse Reactions: Allergies No Known Allergies Allergy (Verified 09/13/17 19:44) Medications to take at Discharge Hydrochlorothiazide [Hctz] 12.5 mg PO DAILY 04/07/17 Pantoprazole Sodium [Protonix] 40 mg PO DAILY 04/07/17 Multivitamin [Daily Multiple Vitamin] 1 tab PO DAILY 09/13/17 Apixaban [Eliquis] 5 mg PO BID #60 tab 09/15/17 Lisinopril [Zestril] 20 mg PO DAILY #0 09/15/17 Metoprolol(XL)Succ [Toprol Xl (Beta Tu)] 50 mg PO DAILY #30 tab 09/15/17 The following prescriptions were given: Metoprolol(XL)Succ [Toprol Xl (Beta Tu)] 50 mg PO DAILY #30 tab Apixaban [Eliquis] 5 mg PO BID #60 tab Primary Care Physician: Arlene Jj MD [Primary Care Provider] - Within 2 Weeks Please Follow Up With: Blayne Ibarra MD - Cardiology When: 2-4 weeks Proposed Discharge Date: 09/15/17
--- NOTE | 2017-09-15 13:36 | PCM.DC.SUM ---
Discharge Date and Diagnosis - Problem List Patient Problems: Active and Suspected Problems (Last Updated 04/13/17 @ 09:40 by Martha Rainey) Lightheadedness (Acute) Palpitations (Acute) A-fib (Acute) Date of Admission: 09/13/17 Date of Discharge: 09/15/17 - Primary Discharge Diagnosis Active and Suspected Problems (Last Updated 04/13/17 @ 09:40 by Martha Rainey) Lightheadedness (Acute) Palpitations (Acute) A-fib (Acute) Hospital Course and Treatment Imaging Results: Clinical Impression(s) from Imaging Studies Chest X-Ray 09/13/17 20:10 IMPRESSION: Mild cardiomegaly. Lungs are clear. Electronically Signed: Mynor Santos DO at 20:23 EDT Tel , Service support , Operations: None Procedures: 2-D Echocardiogram - Ejection fraction of 45%. Summary of Care Provided: The patient is a 47 year old M found to be in atrial fibrillation with RVR. Patient was seen in consultation by cardiology. Echocardiogram showed an ejection fraction of 45%. Patient was transitioned to all extended release 50 mg daily. With that, patient's amlodipine was discontinued and her list his lisinopril was decreased from 40-20 mg daily. Patient was also started on Eliquis for anticoagulation. Patient was going to be cardioverted but spontaneously converted and is currently in normal sinus rhythm. Atrial fibrillation with RVR Converted to normal sinus rhythm Patient states that he has had similar episodes but less severe in the past but was never evaluated for this. Presumably, these may have been atrial fibrillation episodes. continue with Toprol XL Anticoagulation with Eliquis Follow-up with cardiology as outpatient [] Discharge Diet: Low fat/ Low Cholesterol Discharge Activity: Return to Normal Activity Call your doctor if you observe: Shortness of breath, Chest pain, Increased palpitations (irregular heartbeat) Home Medications: Medications to take at Discharge Hydrochlorothiazide [Hctz] 12.5 mg PO DAILY 04/07/17 Pantoprazole Sodium [Protonix] 40 mg PO DAILY 04/07/17 Multivitamin [Daily Multiple Vitamin] 1 tab PO DAILY 09/13/17 Apixaban [Eliquis] 5 mg PO BID #60 tab 09/15/17 Lisinopril [Zestril] 20 mg PO DAILY #0 09/15/17 Metoprolol(XL)Succ [Toprol Xl (Beta Tu)] 50 mg PO DAILY #30 tab 09/15/17 Following Prescrptions Were Given to Patient: Metoprolol(XL)Succ [Toprol Xl (Beta Tu)] 50 mg PO DAILY #30 tab Apixaban [Eliquis] 5 mg PO BID #60 tab Primary Care Physician: Arlene Jj MD [Primary Care Provider] - Within 2 Weeks Please Follow Up With: Blayne Ibarra MD - Cardiology When: 2-4 weeks Disposition: Home Minutes spent on discharge:: 28 Patient Condition:: Good Medical Necessity - Tobacco Use Smoking Status: Never smoker Tobacco Use: Non-smoker Meaningful Use Info Meaningful Use Diagnoses (Choose all that apply): None applicable Code Visit Inpatient E&M: 96744 Disch Hosp
--- NOTE | 2017-09-15 13:39 | DS.PCM_ITS ---
Discharge Date and Diagnosis - Problem List Patient Problems: Active and Suspected Problems (Last Updated 04/13/17 @ 09:40 by Martha Rainey) Lightheadedness (Acute) Palpitations (Acute) A-fib (Acute) Date of Admission: 09/13/17 Date of Discharge: 09/15/17 - Primary Discharge Diagnosis Active and Suspected Problems (Last Updated 04/13/17 @ 09:40 by Martha Rainey) Lightheadedness (Acute) Palpitations (Acute) A-fib (Acute) Hospital Course and Treatment Imaging Results: Clinical Impression(s) from Imaging Studies Chest X-Ray 09/13/17 20:10 IMPRESSION: Mild cardiomegaly. Lungs are clear. Electronically Signed: Mynor Santos DO at 20:23 EDT Tel , Service support , Operations: None Procedures: 2-D Echocardiogram - Ejection fraction of 45%. Summary of Care Provided: The patient is a 47 year old M found to be in atrial fibrillation with RVR. Patient was seen in consultation by cardiology. Echocardiogram showed an ejection fraction of 45%. Patient was transitioned to all extended release 50 mg daily. With that, patient's amlodipine was discontinued and her list his lisinopril was decreased from 40-20 mg daily. Patient was also started on Eliquis for anticoagulation. Patient was going to be cardioverted but spontaneously converted and is currently in normal sinus rhythm. Atrial fibrillation with RVR * Converted to normal sinus rhythm * Patient states that he has had similar episodes but less severe in the past but was never evaluated for this. Presumably, these may have been atrial fibrillation episodes. * continue with Toprol XL * Anticoagulation with Eliquis * Follow-up with cardiology as outpatient [] Discharge Diet: Low fat/ Low Cholesterol Discharge Activity: Return to Normal Activity Call your doctor if you observe: Shortness of breath, Chest pain, Increased palpitations (irregular heartbeat) Home Medications: Medications to take at Discharge Hydrochlorothiazide [Hctz] 12.5 mg PO DAILY 04/07/17 Pantoprazole Sodium [Protonix] 40 mg PO DAILY 04/07/17 Multivitamin [Daily Multiple Vitamin] 1 tab PO DAILY 09/13/17 Apixaban [Eliquis] 5 mg PO BID #60 tab 09/15/17 Lisinopril [Zestril] 20 mg PO DAILY #0 09/15/17 Metoprolol(XL)Succ [Toprol Xl (Beta Tu)] 50 mg PO DAILY #30 tab 09/15/17 Following Prescrptions Were Given to Patient: Metoprolol(XL)Succ [Toprol Xl (Beta Tu)] 50 mg PO DAILY #30 tab Apixaban [Eliquis] 5 mg PO BID #60 tab Primary Care Physician: Arlene Jj MD [Primary Care Provider] - Within 2 Weeks Please Follow Up With: Blayne Ibarra MD - Cardiology When: 2-4 weeks Disposition: Home Minutes spent on discharge:: 28 Patient Condition:: Good Medical Necessity - Tobacco Use Smoking Status: Never smoker Tobacco Use: Non-smoker Meaningful Use Info Meaningful Use Diagnoses (Choose all that apply): None applicable Code Visit Inpatient E&M: 39090 Disch Hosp
--- NOTE | 2017-09-15 13:52 | CASEMGMT ---
Per Dr. Mcdaniels, pt to be sent home on Eliquis and script e-scribed to [facility]. Call to [facility] and per Gayle, pt's co-pay is $15.00 at this time. Pt updated on all at this time and voices understanding. Opal WADDELL CM
== END 2017-09-15 15:10 | disposition home or self-care (01) | DRG 310 ==
LOC: ED 22:46 → PCU 22:52
PROVIDERS: Admitting Provider Internal Medicine; Emergency Provider Emergency Medicine; Family Provider Internal Medicine; PCP Internal Medicine
DX: I48.91 Unspecified atrial fibrillation (principal); I10 Essential (primary) hypertension; G47.33 Obstructive sleep apnea (adult) (pediatric); E87.6 Hypokalemia; I48.92 Unspecified atrial flutter
CPT/HCPCS: 36415; 71045; 80048; 80061; 83735; 84443; 84484; 85025; 85610; 85730; 93005; 93306; 99285; Q9957; A4216

== ENCOUNTER 2018-04-18 05:55 | Day surgery (SDC) | payer OTHER, SELFPAY ==
--- NOTE | 2018-04-03 13:15 | PCM.HP.BLA ---
History and Physical DATE OF SURGERY: 04/18/2018 SCHEDULED PROCEDURE: right knee arthroscopy with partial medial meniscectomy HISTORY OF PRESENT ILLNESS: This is a 47-year-old male who has been having ongoing pain in the right knee for the past 6 weeks. Patient sustained an injury when he fell while walking on uneven ground. Pain is located over the medial aspect of the right knee. Patient states he has increased pain going up and down stairs, sitting for extended periods of time, prolonged standing. Patient does have start up pain. Patient has tried [id number] knee sleeve as well as Oxaprozin. Pain has affected his activities of daily living. He has been unable to exercise due to the pain. Patient has had a MRI of the right knee which did show complex posterior horn medial meniscus tear and medial compartment chondromalacia. After failing conservative measures and discussing treatment options with Dr. Arturo Katz the patient would like to proceed with a right knee arthroscopy with partial medial meniscectomy. Patient has medical history pertinent for hypertension, sleep apnea which requires CPAP machine. He denies any recent fevers, chills, chest pain, shortness of breath, or infections. REVIEW OF SYSTEMS: ROS: Const: Denies change in appetite, fever and weight change. CV: Reports irregular heartbeat, but denies chest pain and heart murmur. Resp: Denies cough, pneumonia, shortness of breath, tuberculosis and wheezing. GI: Denies constipation, diarrhea, heartburn, nausea, rectal itching, bloody stools and vomiting. : Denies incontinence. Musculo: Denies leg swelling, pain, trouble walking and weakness. Skin: Denies Raynaud's, history of shingles and tattoo. Neuro: Denies ambulatory dysfunction, dizziness, numbness/tingling and tremor. Psych: Denies anxiety, insomnia and stress. Pillo/Lymph: Denies anemia, bleeding/bruising tendency and past transfusion. Reviewed, no changes. PAST MEDICAL HISTORY: Advance Care Plan: Other Directive, POA Effective Date: 03/19/2018 Other Directive, LIVING WILL Effective Date: 03/19/2018 PMH: Medical Problems: Hard of Hearing, High Blood Pressure, Sleep Apnea Accidents: LT Arm FX - (1981) Surgical Hx: Gallbladder - GEM @ [facility] Vasecomty, Lasix, Javy Cataract, Bunion Anesthesia Complications: None Assistive Devices: Hearing Aid Reviewed, no changes. 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 Personal Habits: Cigarette Use: Never Smoked Cigarettes.Smokeless Tobacco: Never Used Smokeless Tobacco.E-Cigarette Use: Never used.Alcohol: Denies use.Drug Use: Denies Use.Enjoy Exercising: Exercises 1-3 x/month. Reviewed, no changes. VITALS: Ht: 76 Wt: 327lb Wt k.327 BMI: 39.8 BP: 144/90 Pulse: 69 Resp: 16 T: 97.8 T: 36.6C ALLERGIES: No Known Drug Allergy MEDICATIONS: Oxycodone HCL 5 mg 1-2 tab by mouth every 6 hours, Amlodipine Besylate 5 mg 1po qday, Lisinopril 20 mg 1po qday, Hydrochlorothiazide 25 mg 1po qday, Pantoprazole Sodium 40 mg 1po qday, Metoprolol Succinate ER 50 mg 1po qday, Oxaprozin 600 mg 1po bid PRE-OP EXAM: General appearance:NORMAL Other: Eyes: Conjunctivae and lids: NORMAL Pupils: ERR Ears, Nose, Mouth, and Throat: NORMAL Other: Inspection of lips, teeth and gums: NORMAL Other: Neck: Examination of neck: no masses noted. Respiratory: Assessment of respiratory effort: NORMAL Other: Auscultation of lungs: clear to auscultation no wheezes, rhonchi or rales. Cardiovascular: Auscultation of heart: regular rate and rhythm, no murmurs, gallops or rubs. Exam of carotid arteries: NORMAL Other: Gastrointestinal: Exam of abdomen: soft, nontender, nondistended bowel sounds present. PHYSICAL EXAMINATION: Patient's right knee is cool to touch without erythema or signs of infection. There is tenderness to palpation over the medial joint line. Range of motion right knee lacks approximately 2 of full extension to 130 flexion. Patient does have a positive Yonny's examination with click and pain. Stable to varus valgus stress test. Correctable varus alignment. Patient does have mild effusion right knee. IMAGING STUDIES: X-rays of the right knee reveal varus alignment with medial joint space narrowing, subchondral sclerosis, osteophyte formation consistent with moderate osteoarthritis. MRI reveals a complex posterior horn medial meniscus tear with medial compartment chondromalacia. IMPRESSION: 1. Right knee posterior horn medial meniscus tear 2. Right knee osteoarthritis 3. Hypertension 4. Sleep apnea: Uses CPAP PLAN: Dr. Arturo Katz did discuss and review with the patient all treatment options including surgical versus nonsurgical options. Patient does wish to proceed with the above-stated procedure. Potential risks, benefits, and complications of the procedure were discussed in detail including but not limited to , infection, nerve and blood vessel damage, persistent pain, numbness, tingling, paresthesias, blood clot, pulmonary embolism, and requirement for possible further surgery. The patient expressed full understanding and has no further questions for the doctor. Patient does agree to proceed with the above-stated procedure and has signed the surgery consent form. Patient will bring crutches to the day of surgery. This dictation was created using voice recognition software. Phonetic and/or grammatical errors may exist.. ___ I have re-examined the patient. There are no clinical changes since date of exam. ___ See progress notes for changes. ___ Dictated on admission Date: Time: Signature:
[2018-04-06 09:57] VITALS: BMI 38.7
[2018-04-18] VITALS (7 sets, daily range): BP systolic 120–157; BP diastolic 78–99; PULSE 52–74; RESP 16–18; TEMP 36.3–36.8; O2SAT 96–100; BMI 37.5
[2018-04-18] MEDS: Ketorolac 30 MG/ML Syringe IV (07:30)
[2018-04-18] MEDS: Bupiv/Epi 0.5% Mpf 30 ML Vial (07:37)
--- NOTE | 2018-04-18 07:38 | PCM.OPRPT ---
Report of Operation Date of Procedure: 04/18/18 Pre-Operative Diagnosis: Right knee chondromalacia. Right knee posterior horn medial meniscus tear Post-Operative Diagnosis: Right knee chondromalacia. Right knee posterior horn medial meniscus tear Surgery/Procedure Performed:: Right knee arthroscopic partial medial meniscectomy. Right knee arthroscopic chondroplasty medial and patellofemoral compartment Description of Surgical Findings:: The operative body household appliances salesperson: None Type of Anesthesia:: General Anesthesiologist: Quincy Junior Special Medications: 2 g Ancef Estimated Blood Loss (mL): 5 Fluids Replaced: 500 mL crystalloid Description of Procedure: On the date of the procedure, the patient's r lower extremity was marked in the preoperative area. Patient was brought back to the operating room where they were transferred to the bed. Anesthesia assumed control of the C-spine airway and administered anesthetic. All bony prominences were identified and well-padded and the r leg was placed in the arthroscopic leg holley. The contralateral leg was then draped over the bed and well-padded. There was padding underneath both sciatic nerves. The foot of the bed was then dropped and the R leg was prepped in a sterile fashion. The surgeon then scrubbed. Upon reentering the room, the operative leg was draped in a standard orthopedic fashion. A timeout was called, everyone agreed upon the side, the site, the procedure to be performed, patient's identity and antibiotics given. Incisions were marked out for the medial and lateral infrapatellar portals. Esmarch bandage was then used to exsanguinate the leg and tourniquet was placed at 250 mmHg. At this time, the lateral portal incision was made in a vertical fashion. The trocar was placed into the joint. The camera was then placed and the patellofemoral joint was visualized. The patella did appear to have advanced grade 3 chondral changes. The trochlea appeared to have grade 2 chondral changes. We then directed our attention to the medial gutter where there was no foreign body. Then directed our attention to the medial joint compartment. There were grade 2 chondral changes on the medial distal femur, grade 2-3 chondral changes on the medial tibial plateau. The medial meniscus had a posterior horn root tear and radial tear at the posterior mid body. The medial portal was then placed under direct visualization using a spinal needle an 11 blade scalpel. Once this was done a probe was placed in the joint and the meniscus was probed finding fraying of the inner edge of the meniscus and the aforementioned tears. The biters and juan were then used sequentially to debriding get rid of any free edges that could be a source of pain and catching in the meniscus tear. There is also areas of cartilage flaps which were debrided with the shaver performing the medial compartment chondroplasty once we felt medial meniscus tear was adequately debrided, we again visualized the joint and noted the meniscus tear was adequately debrided. Attention was then turned towards the notch where the anterior cruciate ligament was intact. PCL was visualized and appeared intact. Attention was then directed towards the lateral compartment where the lateral distal femur had minimal chondral changes, the lateral proximal tibia had minimal chondral changes. The lateral meniscus had no tears. We then directed our attention to the lateral gutter, which was visualized and no free bodies were noted. We then directed our attention back to the sleep patellar pouch and patella where the after mentioned chondral damage was. Shaver was placed in the joint and chondral flaps were debrided performing a patellofemoral chondroplasty. At this time the wound was copiously irrigated out with normal saline with epinephrine. The wound was closed with 4-0 nylon and 0.5% Marcaine and epinephrine were injected for local anesthetic. Xeroform was placed over the incision. Sterile dressing was placed. Compressive dressing was placed. Tourniquet was let down. For that there was then placed up. Patient was awakened by anesthesia patient was transferred to the PACU for recovery in stable condition. Postoperative plan: Patient will be made weight-bear as tolerated. Return to activities as tolerated. He will come to the office in 2 weeks for postoperative wound check and suture removal. If he is doing well that time he can follow-up as needed. - Complications NONE - Admit VTE Documentation VTE Present on Admission: No VTE Mechan Device Prophylaxis: SCD's, Thigh High ROXANA Hose VTE Pharm Prophylaxis ordered?: Yes
== END 2018-04-18 09:52 | disposition home or self-care (01) ==
LOC: SDC 05:56 → AC 05:58
PROVIDERS: Family Provider Internal Medicine; PCP Internal Medicine; Referring Provider Specialist; Visit Provider Specialist
PROC: (CPT 29870; principal; 2018-04-18 06:55)
DX: S83.241A Other tear of medial meniscus, current injury, right knee, initial encounter (principal); M94.261 Chondromalacia, right knee; M17.11 Unilateral primary osteoarthritis, right knee; I10 Essential (primary) hypertension; G47.30 Sleep apnea, unspecified; K21.9 Gastro-esophageal reflux disease without esophagitis; Z79.891 Long term (current) use of opiate analgesic; Z79.899 Other long term (current) drug therapy; W18.30XA Fall on same level, unspecified, initial encounter; Y93.01 Activity, walking, marching and hiking; Y92.89 Other specified places as the place of occurrence of the external cause; Y99.8 Other external cause status
CPT/HCPCS: 29881; J7120; J2405

== ENCOUNTER 2018-05-11 18:55 | Emergency (ER) | payer OTHER, SELFPAY ==
[2018-04-18 06:13] VITALS: BMI 37.5
[2018-05-11 18:55] VITALS: BP 154/85; PULSE 86; RESP 16; TEMP 37.2; O2SAT 96; BMI 36.6
--- NOTE | 2018-05-11 19:45 | EKG12_ITS ---
Test Reason : PALP Blood Pressure : / mmHG Vent. Rate : 072 BPM Atrial Rate : 072 BPM P-R Int : 172 ms QRS Dur : 094 ms QT Int : 388 ms P-R-T Axes : 037 -30 052 degrees QTc Int : 424 ms Normal sinus rhythm Left axis deviation Minimal voltage criteria for LVH, may be normal variant Abnormal ECG Confirmed by CONOR HAYWOOD, ISABEL ([id number]), magazine editor HERNAN NOVA ([id number]) on 05/15/2018 4:45:15 PM Referred By: LOLITA Confirmed By:ISABEL PERDOMO MD
--- NOTE | 2018-05-11 19:55 | RAD_ITS ---
STUDY: X-RAY CHEST REASON FOR EXAM: Male, 47 years old. Chest pain TECHNIQUE: AP portable COMPARISON: None. FINDINGS: The lungs are clear and expanded. There is no demonstrated pleural abnormality. The heart is enlarged. Normal mediastinum and lauryn. Normal visualized pulmonary arteries. Normal visualized aortic arch and descending thoracic aorta. Normal visualized thoracic spine. Normal visualized ribs, clavicles, and shoulders. There is no demonstrated abnormality of the visualized soft tissue structures of the upper abdomen. RAD/Chest 1 View (Portable) IMPRESSION: Cardiomegaly. No acute disease Electronically Signed: Fran Barros MD at 21:23 EST , Service support ,
[2018-05-11 20:03] VITALS: BP 142/95; PULSE 76; RESP 18; O2SAT 96
[2018-05-11 20:03] LABS: Absolute Lymphocyte Count 2.74 X10^3/ul (0.83-4.51); Absolute Neutrophil Count 4.3 X10^3/uL (2.0-7.7); Basophil# 0.04 X10^3/uL; Basophil% 0.5 % (0-1); Eosinophil# 0.28 X10^3/uL; Eosinophils% 3.6 % (0-5); Hematocrit 43.9 % (40-54); Hemoglobin 15.1 g/dl (13.0-16.5); Lymphocyte # 2.74 X10^3/ul (4.0); Lymphocyte % 34.9 % (19-41); Mean Corp Hgb Conc 34.4 g/gl (32-36); Mean Corpuscular Hgb 30.7 pg (27.0-32.0); Mean Corpuscular Volume 89.2 fL (80-94); Mean Platelet Vol. 10.7 fl (6.2-12.0); Monocyte% 6.4 % (0-10); Neutrophil # 4.27 X10^3/uL (2.7-7.7); Neutrophil % 54.5 % (47-70); Platelet Count 186 K/mm3 (150-450); RBC Distribution Width CV 12.5 % (11.6-14.6); RBC Distribution Width SD 39.8 fl (35.1-43.9); Red Blood Count 4.92 M/mm3 (4.6-6.2); White Blood Count 7.8 K/mm3 (4.4-11.0)
[2018-05-11 20:04] LABS: POSITIVE COUNT NO; POSITIVE DIFFERENTIAL NO; POSITIVE MORPHOLOGY NO
[2018-05-11 20:13] LABS: Prothrombin Time (Protime)PT. 13.4 SECONDS (11.7-14.9)
--- NOTE | 2018-05-11 20:15 | ED.VISSUMM ---
- ER Visit Summary Date of Service: 05/11/18 Chief Complaint: Accelerated heart rate resolved History of Present Illness: The patient is a 47 M history of A. fib and hypertension. Patient originally had A. fib about a year ago. It is since resolved. He has been taken off of blood thinners. He is on metoprolol for his blood pressure. He is recently seen Dr. Ibarra and was doing well. Basically today an accelerated heart rate in the low 100s. Anyone to get it checked out. He denies any chest pain. He denies any shortness of breath. Currently his symptoms have completely resolved. He denies any leg pain or swelling. He did have a right knee arthroscopy about a month ago but has had no calf pain or swelling. He has had no hemoptysis. He has had no chest pain. Physical Examination: Well-appearing middle-age male. Vital signs are stable and afebrile. His pulse ox is 96% on room air. His current pulse on my exam is 67. And regular. On the monitor. HEENT exam unremarkable. Neck nontender. No thyromegaly. Lungs clear to auscultation bilaterally. Heart regular rate and rhythm no murmur rate about 70. Abdomen soft and nontender. Normal bowel sounds no peritoneal signs. Extremities moves all 4. Calves nontender without edema or cords. Neurologically he is awake and alert with no focal motor deficits. Test Results: EKG shows a sinus rhythm rate of 70 unchanged from prior EKG from August. He is normal with a hemoglobin of 15. Chemistries normal except for potassium of 3.1. Normal creatinine and gap. Troponin normal. Two-view chest x-ray shows no acute abnormality. Normal cardiac silhouette. Read by myself. Emergency Department Course and Treatment: Repeat exam patient is doing well at 2049. I went over all test results with him he can follow-up as an outpatient. Treatment Plan: Continue his current medications. Follow-up if further palpitations or return if worse. Disposition: Discharge Impression: Acute palpitations uncertain etiology resolved History of prior A. fib Mild hypokalemia This note was generated with [employer] dictation software. It may contain incorrect words, spelling, and punctuation that were not noted in review of the chart prior to signing ED Disposition - Plan for ED Patient: Referrals: Arlene Jj MD [Primary Care Provider] -
[2018-05-11 20:34] LABS: Anion Gap 8 (5-15); BUN 13 mg/dL (7-18); BUN/Creat Ratio 12.3 RATIO (10-20); Chloride 104 mmol/L (98-107); Creatinine, Serum 1.06 mg/dL (0.70-1.30); EST Glomerular Filtration Rate 79 mL/min (>60); Est Glom Filt Rate - Afr Amer 96 mL/min (>60); Estimated Creatinine Clearance 110.18 ml/min; Glucose 106 mg/dL (74-106); Potassium 3.1 mmol/L (3.5-5.1); Sodium Level 140 mmol/L (136-145)
--- NOTE | 2018-05-11 20:51 | ED.DEP ---
ED Disposition - Plan for ED Patient: Disposition: Home or Assisted Living Instructions: ED Palpitations Referrals: Arlene Jj MD [Primary Care Provider] - 1 Week if not improving Additional Instructions: Plenty of potassium rich foods your potassium is just a little low today at 3.1. Otherwise your labs were normal.
[2018-05-11 21:08] VITALS: BP 140/84; PULSE 68; RESP 15; O2SAT 96
--- NOTE | 2018-05-11 21:16 | ED.RN ---
IV DC'ED, CATHETER INTACT, SMALL GAUZE DRESSING PLACED. DISCHARGE INSTRUCTIONS GIVEN TO AND REVIEWED WITH PATIENT, PATIENT DENIES QUESTIONS OR CONCERNS AND VOICES UNDERSTANDING OF DISCHARGE INSTRUCTIONS. PT AMBULATES OUT OF ROOM WITHOUT DIFFICULTY.
== END 2018-05-11 21:17 | disposition home or self-care (01) ==
PROVIDERS: Emergency Provider Emergency Medicine; Family Provider Internal Medicine; PCP Internal Medicine
DX: R00.2 Palpitations (principal); E87.6 Hypokalemia; I10 Essential (primary) hypertension; Z86.79 Personal history of other diseases of the circulatory system; Z79.899 Other long term (current) drug therapy
CPT/HCPCS: 71045; 80048; 84484; 85025; 85610; 93005; 99284; A4216

== ENCOUNTER → 2019-02-01 | Outpatient (CLI) | payer OTHER, SELFPAY ==
[2018-06-26 10:01] VITALS: BMI 35.9
[2019-02-01 13:56] LABS: Anion Gap 10 (5-15); BUN 15 mg/dL (7-18); BUN/Creat Ratio 14.6 RATIO (10-20); Calcium,Total 9.6 mg/dL (8.5-10.1); Chloride 104 mmol/L (98-107); Creatinine, Serum 1.03 mg/dL (0.70-1.30); EST Glomerular Filtration Rate 81 mL/min (>60); Est Glom Filt Rate - Afr Amer 99 mL/min (>60); Glucose 116 mg/dL (74-106); Potassium 3.5 mmol/L (3.5-5.1); Sodium Level 142 mmol/L (136-145); T4 Total, Thyroxin 10.1 ug/dL (4.5-12.1); Thyroid Stim Hormone (TSH) 0.56 uIU/mL (0.358-3.74)
== END | disposition home or self-care (01) ==
LOC: LAB 11:30
PROVIDERS: Family Provider Internal Medicine; PCP Internal Medicine; Referring Provider Internal Medicine Cardiovascular Disease; Visit Provider Internal Medicine Cardiovascular Disease
DX: I10 Essential (primary) hypertension (principal); I48.0 Paroxysmal atrial fibrillation
CPT/HCPCS: 36415; 80048; 84436; 84443

== ENCOUNTER 2019-06-18 16:00 | Outpatient (RCR) | payer OTHER, SELFPAY ==
[2019-03-29 08:07] VITALS: BMI 36.6
== END 2019-06-18 23:59 ==
LOC: NS 16:00
PROVIDERS: PCP Internal Medicine; Visit Provider Internal Medicine
DX: Z71.3 Dietary counseling and surveillance (principal); E66.9 Obesity, unspecified; Z68.37 Body mass index [BMI] 37.0-37.9, adult
CPT/HCPCS: 97803

== ENCOUNTER 2019-07-16 15:00 | Outpatient (RCR) | payer OTHER, SELFPAY ==
[2019-03-29 08:07] VITALS: BMI 36.6
== END 2019-07-18 23:59 ==
LOC: NS 15:00
PROVIDERS: PCP Internal Medicine; Visit Provider Internal Medicine
DX: Z71.3 Dietary counseling and surveillance (principal); E66.9 Obesity, unspecified; Z68.37 Body mass index [BMI] 37.0-37.9, adult
CPT/HCPCS: 97803

== ENCOUNTER 2019-08-06 14:51 | Outpatient (RCR) | payer OTHER, SELFPAY ==
[2019-03-29 08:07] VITALS: BMI 36.6
== END 2019-08-18 23:59 ==
LOC: NS 14:51
PROVIDERS: PCP Internal Medicine; Visit Provider Internal Medicine
DX: Z71.3 Dietary counseling and surveillance (principal); E66.9 Obesity, unspecified; Z68.37 Body mass index [BMI] 37.0-37.9, adult
CPT/HCPCS: 97803

== ENCOUNTER 2019-09-17 15:00 | Outpatient (RCR) | payer OTHER, SELFPAY ==
[2019-03-29 08:07] VITALS: BMI 36.6
== END 2019-09-17 23:59 ==
LOC: NS 15:00
PROVIDERS: PCP Internal Medicine; Visit Provider Internal Medicine
DX: Z71.3 Dietary counseling and surveillance (principal); E66.9 Obesity, unspecified; Z68.37 Body mass index [BMI] 37.0-37.9, adult
CPT/HCPCS: 97803

== ENCOUNTER 2019-10-08 15:23 | Outpatient (RCR) | payer OTHER, SELFPAY ==
[2019-03-29 08:07] VITALS: BMI 36.6
== END 2019-10-18 23:59 ==
LOC: NS 15:23
PROVIDERS: PCP Internal Medicine; Visit Provider Internal Medicine
DX: Z71.3 Dietary counseling and surveillance (principal); E66.9 Obesity, unspecified; Z68.37 Body mass index [BMI] 37.0-37.9, adult
CPT/HCPCS: 97803

== ENCOUNTER 2019-10-29 15:24 | Outpatient (RCR) | payer OTHER, SELFPAY ==
[2019-03-29 08:07] VITALS: BMI 36.6
== END 2019-11-18 23:59 ==
LOC: NS 15:24
PROVIDERS: PCP Internal Medicine; Visit Provider Internal Medicine
DX: Z71.3 Dietary counseling and surveillance (principal); E66.9 Obesity, unspecified; Z68.37 Body mass index [BMI] 37.0-37.9, adult
CPT/HCPCS: 97803

== ENCOUNTER 2019-12-03 14:54 | Outpatient (RCR) | payer OTHER, SELFPAY ==
[2019-03-29 08:07] VITALS: BMI 36.6
== END 2019-12-18 23:59 ==
LOC: NS 14:54
PROVIDERS: PCP Internal Medicine; Visit Provider Internal Medicine
DX: Z71.3 Dietary counseling and surveillance (principal); E66.9 Obesity, unspecified; Z68.37 Body mass index [BMI] 37.0-37.9, adult
CPT/HCPCS: 97803

== ENCOUNTER 2019-12-24 14:55 | Outpatient (RCR) | payer OTHER, SELFPAY ==
[2019-03-29 08:07] VITALS: BMI 36.6
== END 2019-12-24 23:59 | disposition home or self-care (01) ==
LOC: NS 14:55
PROVIDERS: PCP Internal Medicine; Visit Provider Internal Medicine
DX: Z71.3 Dietary counseling and surveillance (principal); E66.9 Obesity, unspecified; Z68.37 Body mass index [BMI] 37.0-37.9, adult
CPT/HCPCS: 97803

== ENCOUNTER → 2021-01-05 11:36 | Outpatient (CLI) | payer OTHER, SELFPAY ==
[2021-01-05 13:49] LABS: Anion Gap 5 (5-15); BUN 17 mg/dL (7-18); BUN/Creat Ratio 16.3 RATIO (10-20); Calcium,Total 9.4 mg/dL (8.5-10.1); Chloride 103 mmol/L (98-107); Creatinine, Serum 1.04 mg/dL (0.70-1.30); EST Glomerular Filtration Rate 80 mL/min (>60); Est Glom Filt Rate - Afr Amer 97 mL/min (>60); Glucose 83 mg/dL (74-106); Magnesium 2.3 mg/dL (1.6-2.6); Potassium 3.1 mmol/L (3.5-5.1); Sodium Level 141 mmol/L (136-145); Thyroid Stim Hormone (TSH) 1.75 uIU/mL (0.358-3.74)
== END ==
PROVIDERS: PCP Internal Medicine; Referring Provider Nurse Practitioner Gerontology; Visit Provider Nurse Practitioner Gerontology
DX: I10 Essential (primary) hypertension (principal); R55 Syncope and collapse; I48.0 Paroxysmal atrial fibrillation
CPT/HCPCS: 36415; 80048; 83735; 84443

== ENCOUNTER 2021-03-29 15:02 | Outpatient (CLI) | payer OTHER, SELFPAY ==
[2021-03-29 15:34] VITALS: BP 142/98; PULSE 70; RESP 16; TEMP 37.1; O2SAT 98; BMI 34.7
[2021-03-29] MEDS: 0.9% Saline Lock 10 ML Syringe IV (15:39)
[2021-03-29 16:00] VITALS: BP 141/98; PULSE 65; RESP 16; TEMP 37.1; O2SAT 98
[2021-03-29 16:50] VITALS: BP 143/91; PULSE 57; RESP 16; TEMP 37.1; O2SAT 100
== END 2021-03-29 23:59 | disposition home or self-care (01) ==
LOC: MS3OUT 15:02 → MS3 15:03
PROVIDERS: PCP Internal Medicine; Referring Provider Nurse Practitioner Adult Health; Visit Provider Nurse Practitioner Adult Health
DX: Z23 Encounter for immunization (principal); U07.1 COVID-19
CPT/HCPCS: J7050; M0243; A4216; Q0244

== ENCOUNTER 2021-05-31 06:00 | Outpatient (CLI) | payer OTHER, SELFPAY ==
[2021-05-31 07:50] LABS: Anion Gap 2 (5-15); BUN 18 mg/dL (7-18); BUN/Creat Ratio 14.5 RATIO (10-20); Calcium,Total 9.2 mg/dL (8.5-10.1); Chloride 106 mmol/L (98-107); Creatinine, Serum 1.24 mg/dL (0.70-1.30); EST Glomerular Filtration Rate 65 mL/min (>60); Est Glom Filt Rate - Afr Amer 79 mL/min (>60); Glucose 107 mg/dL (74-106); Sodium Level 139 mmol/L (136-145)
== END 2021-05-31 23:59 | disposition home or self-care (01) ==
LOC: LAB 06:02
PROVIDERS: PCP Internal Medicine; Referring Provider Nurse Practitioner Family; Visit Provider Nurse Practitioner Family
DX: I10 Essential (primary) hypertension (principal); E87.6 Hypokalemia
CPT/HCPCS: 36415; 80048

== ENCOUNTER 2021-06-08 11:15 | Outpatient (CLI) | payer OTHER, SELFPAY ==
[2021-06-08 12:13] LABS: Hematocrit 46.2 % (40-54); Hemoglobin 16.4 g/dL (13.0-16.5); Mean Corp Hgb Conc 35.5 g/dL (32-36); Mean Corpuscular Hgb 31.7 pg (27.0-32.0); Mean Corpuscular Volume 89.2 fL (80-94); Mean Platelet Vol. 10.3 fl (6.2-12.0); Platelet Count 212 K/mm3 (150-450); RBC Distribution Width CV 12.5 % (11.6-14.6); RBC Distribution Width SD 41.3 fl (35.1-43.9); Red Blood Count 5.18 M/mm3 (4.6-6.2); White Blood Count 5.8 K/mm3 (4.4-11.0)
[2021-06-08 12:57] LABS: Anion Gap 1 (5-15); BUN 21 mg/dL (7-18); BUN/Creat Ratio 19.4 RATIO (10-20); Chloride 106 mmol/L (98-107); Creatinine, Serum 1.08 mg/dL (0.70-1.30); EST Glomerular Filtration Rate 76 mL/min (>60); Est Glom Filt Rate - Afr Amer 92 mL/min (>60); Glucose 88 mg/dL (74-106); Potassium 4.2 mmol/L (3.5-5.1); Sodium Level 138 mmol/L (136-145)
== END 2021-06-08 23:59 | disposition home or self-care (01) ==
LOC: LAB 11:15
PROVIDERS: PCP Internal Medicine; Referring Provider Nurse Practitioner Family; Visit Provider Nurse Practitioner Family
DX: E87.6 Hypokalemia (principal); I42.8 Other cardiomyopathies; I48.0 Paroxysmal atrial fibrillation; I51.7 Cardiomegaly; R42 Dizziness and giddiness
CPT/HCPCS: 36415; 80048; 84443; 85027

== ENCOUNTER 2021-06-22 08:26 | Outpatient (CLI) | payer OTHER, SELFPAY | END 2021-06-22 23:59 | disposition home or self-care (01) | LOC: PSN 08:28 | PROVIDERS: PCP Internal Medicine; Referring Provider Nurse Practitioner Family; Visit Provider Nurse Practitioner Family | DX: R00.0 Tachycardia, unspecified (principal); I48.0 Paroxysmal atrial fibrillation; R42 Dizziness and giddiness | CPT/HCPCS: 93225; 93226 ==

== ENCOUNTER → 2021-11-23 | Outpatient (CLI) | payer OTHER, SELFPAY ==
--- NOTE | 2021-11-23 13:55 | ECHOD_ITS ---
Reason For Study: Afib/Flutter, CMP Procedure This was a 2D Doppler, Color Flow transthoracic echocardiogram. Exam performed in department. Left Ventricle Normal LV size. Left ventricular systolic function is normal. The estimated ejection fraction is 65 %. Normal diastology for age. No regional wall motion abnormalities noted. Right Ventricle Normal RV size. Normal systolic function. Atria Normal left atrium. Normal right atrium. Mitral Valve Normal mitral valve. Tricuspid Valve Normal tricuspid valve. Aortic Valve The aortic valve is not well visualized. Pulmonic Valve Normal pulmonic valve. Great Vessels Normal aortic root. The pulmonary artery is normal size. Normal inferior vena cava. Pericardium/Pleural No pericardial effusion. MMode/2D Measurements & Calculations LVIDd: 5.0 cm IVSd: 1.0 cm Ao root diam: 3.9 cm LVIDs: 3.1 cm LVPWd: 1.3 cm LA dimension: 3.7 cm RVDd: 3.8 cm FS: 37.8 % LAV(MOD-bp): 56.9 ml LA A4 area: 18.4 cm2 RA A4 area: 12.9 cm2 LAV(MOD-bp) Indexed: 21.6 ml/m2 LAV(MOD-sp2): 55.1 ml LAV(MOD-sp4): 55.9 ml Time Measurements MV dec time: 0.29 sec Doppler Measurements & Calculations MV E max ugo: 71.0 cm/sec Lat Peak E' Ugo: 12.5 cm/sec Med Peak E' Ugo: 11.7 cm/sec MV A max ugo: 63.2 cm/sec E/E' lat: 5.7 E/E' med: 6.1 MV E/A: 1.1 MV V2 max: 76.5 cm/sec MV P1/2t max ugo: 76.5 cm/sec Ao V2 max: 124.7 cm/sec MV max P.3 mmHg MV P1/2t: 91.3 msec Ao max P.2 mmHg MV V2 mean: 47.7 cm/sec MV dec slope: 245.6 cm/sec2 MV mean P.0 mmHg MVA(P1/2t): 2.4 cm2 MV V2 VTI: 26.5 cm LV V1 max: 117.2 cm/sec PA V2 max: 143.3 cm/sec LV V1 max P.5 mmHg PA V2 mean: 100.8 cm/sec ECHO/Echo Complete Interpretation Summary Normal LV size. Left ventricular systolic function is normal. The estimated ejection fraction is 65 %. Normal diastology for age. Ordering Physician: Vanita Erickson Referring Physician: Arlene Jj M.D. Performed By: Ángel Matos RCS
== END | disposition home or self-care (01) ==
PROVIDERS: PCP Internal Medicine; Referring Provider Nurse Practitioner Gerontology; Visit Provider Nurse Practitioner Gerontology
DX: I42.8 Other cardiomyopathies (principal); I48.0 Paroxysmal atrial fibrillation
CPT/HCPCS: 93306

== ENCOUNTER 2021-12-18 01:52 | Emergency (ER) | payer OTHER, SELFPAY ==
[2021-12-18] VITALS (7 sets, daily range): BP systolic 95–126; BP diastolic 53–95; PULSE 72–88; RESP 15–21; TEMP 36.4–36.6; O2SAT 99–100; BMI 37.0
[2021-12-18 02:20] LABS: Bedside Glucose 127 mg/dL (74-106)
--- NOTE | 2021-12-18 02:24 | EKG12_ITS ---
Test Reason : DYSRHYTHMIA Blood Pressure : / mmHG Vent. Rate : 081 BPM Atrial Rate : 081 BPM P-R Int : 182 ms QRS Dur : 092 ms QT Int : 372 ms P-R-T Axes : 048 -03 068 degrees QTc Int : 432 ms Normal sinus rhythm Normal ECG Confirmed by CONOR HAYWOOD, ISABEL ([id number]), newspaper or periodical editor NABIL DOBSON ([id number]) on 12/21/2021 12:35:12 PM Referred By: DINH Confirmed By:ISABEL PERDOMO MD
--- NOTE | 2021-12-18 02:30 | RAD_ITS ---
EXAM: XR CHEST, 1 VIEW CLINICAL INDICATION: dizziness TECHNIQUE: Frontal view of the chest. This report was created using [employer] report generation technology. COMPARISON: 05/11/2018. FINDINGS: LUNGS AND PLEURAL SPACES: Low lung volumes limit the exam. No consolidations. No pneumothorax. No effusion. HEART: Unremarkable. Cardiac silhouette not enlarged. MEDIASTINUM: Central airways and mediastinal contour are unremarkable. BONES/JOINTS: Unremarkable. SOFT TISSUES: Unremarkable. RAD/Chest 1 View (Portable) IMPRESSION: 1. Low lung volumes limit the exam. No consolidations. 2. No acute cardiopulmonary abnormality. Electronically Signed: Dominick Balderas MD at 2:44 EDT ,
[2021-12-18 02:33] LABS: Absolute Neutrophil Count 15.5 X10^3/uL (2.0-7.7); Basophil# 0.09 X10^3/uL; Basophil% 0.4 % (0-1); Eosinophil# 0.14 X10^3/uL; Eosinophils% 0.7 % (0-5); Hematocrit 47.2 % (40-54); Hemoglobin 15.9 g/dL (13.0-16.5); Lymphocyte % 13.4 % (19-41); Mean Corp Hgb Conc 33.7 g/dL (32-36); Mean Corpuscular Hgb 31.6 pg (27.0-32.0); Mean Corpuscular Volume 93.8 fL (80-94); Mean Platelet Vol. 10.5 fl (6.2-12.0); Monocyte# 1.61 X10^3/uL; NRBC Flagged by Analyzer 0 % (0-5); Neutrophil # 15.45 X10^3/uL (2.7-7.7); Neutrophil % 76.8 % (47-70); POSITIVE DIFFERENTIAL YES; Platelet Count 250 K/mm3 (150-450); RBC Distribution Width CV 12.1 % (11.6-14.6); RBC Distribution Width SD 41.6 fl (35.1-43.9); Red Blood Count 5.03 M/mm3 (4.6-6.2); White Blood Count 20.1 K/mm3 (4.4-11.0)
[2021-12-18 02:34] LABS: Differential Indicated SCAN CRITERIA MET
[2021-12-18 02:52] LABS: Anion Gap 7 (5-15); BUN 24 mg/dL (7-18); BUN/Creat Ratio 14.9 RATIO (10-20); Calcium,Total 10.1 mg/dL (8.5-10.1); Chloride 104 mmol/L (98-107); Creatinine, Serum 1.61 mg/dL (0.70-1.30); EST Glomerular Filtration Rate 48 mL/min (>60); Est Glom Filt Rate - Afr Amer 58 mL/min (>60); Estimated Creatinine Clearance 69.39 ml/min; Glucose 134 mg/dL (74-106); Magnesium 2.4 mg/dL (1.6-2.6); Potassium 4.6 mmol/L (3.5-5.1); Sodium Level 139 mmol/L (136-145); Troponin-I HS 4 pg/mL (3.0-78.0)
[2021-12-18 03:39] LABS: Differential Comment SCANNED
[2021-12-18 03:46] LABS: Mucous, Urine 0 SEEN /hpf (<or=2+)
[2021-12-18 03:48] LABS: Color, Urine Yellow (Yellow); Glucose, Dipstick Normal (Normal); Ketone-Dipstick 5 mg/dl (Negative); Leukocyte Esterase-Dipstick 25 /ul (Negative); Nitrite-Dipstick Negative (Negative); Occult Blood-Urine 150 /ul (Negative); Protein-Dipstick 30 mg/dl (Negative); Specific Gravity, Urine 1.025 (1.002-1.030); Urine Bilirubin Dipstick Negative (Negative); Urine Clarity Clear (Clear); Urine Urobilinogen 1 mg/dl (Normal)
[2021-12-18] MEDS: 0.9% Normal Saline 1,000 ML 999 ML IV (03:50)
[2021-12-18 03:55] LABS: Red Blood Cells-Urine 0-5 SEEN /hpf (0-5); Squamous Epithelial Cells - UA 0-5 SEEN /hpf (0-5); White Blood Cells 5-10 SEEN /hpf (0-5)
[2021-12-18 03:56] LABS: Bacteria 1+ /hpf (None Seen)
--- NOTE | 2021-12-18 04:32 | CT_ITS ---
EXAM: CT ABDOMEN AND PELVIS WITH INTRAVENOUS CONTRAST CLINICAL INDICATION: abd pain TECHNIQUE: Helically acquired images were obtained of the abdomen and pelvis with intravenous contrast. This CT exam was performed using one or more of the following dose reduction techniques: automated exposure control, adjustment of the mA and/or kV according to patient size, and/or use of iterative reconstruction technique. This report was created using [employer] report generation technology. CONTRAST: 100 cc of Isovue-300 IV. RADIATION DOSE: CTDIvol = 20.39 mGy, DLP = 1408.87 mGy-cm. COMPARISON: None. FINDINGS: LOWER THORAX: Unremarkable. Lung bases are clear. No cardiomegaly. No significant pericardial effusion. ABDOMEN: LIVER: Unremarkable. Homogeneous. No focal mass. GALLBLADDER AND BILE DUCTS: Cholecystectomy. No intra- or extrahepatic biliary ductal dilation. PANCREAS: Unremarkable. No focal cystic or solid mass. SPLEEN: Unremarkable. Normal size without focal cystic or solid mass. ADRENALS: Unremarkable. No nodules. KIDNEYS AND URETERS: Unremarkable. Normal renal size and position. No hydronephrosis. STOMACH AND BOWEL: Unremarkable. No stomach or bowel distention. No focal inflammatory change. PELVIS: APPENDIX: Normal appendix. BLADDER: Unremarkable. REPRODUCTIVE: There is a well-circumscribed cyst measuring 1.9 cm involving the posterior superior aspect of the prostate at the origin of the seminal vesicles. ABDOMEN and PELVIS: INTRAPERITONEAL SPACE: Unremarkable. No ascites or other fluid collection. No free air. BONES/JOINTS: Unremarkable. No suspicious lytic or blastic abnormality. SOFT TISSUES: Unremarkable. No discrete abdominal or pelvic wall hernia. VASCULATURE: Unremarkable. Abdominal aorta is non-dilated. LYMPH NODES: Unremarkable. No enlarged lymph nodes. CT/Abdomen/Pelvis W IV Cont ONLY IMPRESSION: 1. No acute abdominal pelvic abnormality. 2. There is a well-circumscribed cyst measuring 1.9 cm involving the posterior superior aspect of the prostate at the origin of the seminal vesicles. This may represent a seminal vesicle cyst. 3. Cholecystectomy. Electronically Signed: Dominick Balderas MD at 5:19 EDT ,
[2021-12-18 04:49] LABS: Troponin-I HS 3 pg/mL (3.0-78.0)
--- NOTE | 2021-12-18 05:31 | EDS_ITS ---
HPI History of Present Illness Chief Complaint: Dizziness Narrative Narrative: Patient is a 51-year-old male with past medical history of paroxysmal atrial fibrillation currently on Xarelto and hypertension he also has a history of hypokalemia but takes supplemental potassium now. He states he was sleeping and he typically needs to wear CPAP but fell asleep in the recliner and then woke up and came upstairs. He states once coming upstairs he had a sensation of feeling hot/flushed and lightheaded/dizzy. He states the symptoms lasted for about 10 minutes and then resolved. During this time he denied feeling any type of abnormal heartbeat or chest pain. He states that the symptoms then recurred 2 more times which concerned him and secondary to this he presents for evaluation. [facility] Medical History BMI 34.0-34.9,adult Essential (primary) hypertension GERD (gastroesophageal reflux disease) Left ventricular hypertrophy Lightheadedness Non-ischemic cardiomyopathy Obesity Obstructive sleep apnea Palpitations Paroxysmal atrial fibrillation Vasovagal syncope Home Medications multivitamin 1 tab PO DAILY Supplement 09/13/17 [History Last Taken 09/13/17 09:00] lisinopril 20 mg tablet 20 mg PO BID 12/13/17 [History Last Taken 04/18/18 05:00] pantoprazole 40 mg tablet,delayed release (Protonix) 40 mg PO QDAY #90 tabs 01/05/21 [Rx Last Taken Unknown] potassium chloride 20 mEq tablet,extended release 20 meq PO DAILY #90 tabs 04/22/21 [Rx Last Taken Unknown] rivaroxaban 20 mg tablet (Xarelto) 20 mg PO DAILY #90 tabs 06/03/21 [Rx Last Taken Unknown] spironolactone 25 mg tablet 25 mg PO DAILY #90 tabs 06/03/21 [Rx Last Taken Unknown] diltiazem HCl 180 mg capsule,extended release 24 hr 180 mg PO BID #180 caps 07/13/21 [Rx Last Taken Unknown] cephalexin 500 mg capsule 500 mg PO TID 7 days #21 caps 12/18/21 [Rx Last Taken Unknown] cephalexin 500 mg capsule 500 mg PO TID 7 days #21 caps 12/18/21 [Rx Last Taken Unknown] Allergy/AdvReac Type Severity Reaction Status Date / Time doxazosin [From Chastity] AdvReac Intermediate Vasovagal/l Verified 12/18/21 02:05 ightheaded Family History (Reviewed 10/29/21 @ 13:11 by Vanita Erickson DIRECTOR OF BROADCAST, DIRECTOR OF BROADCAST-C) Mother Hypertension Diabetes Cancer Father Hypotension Surgical History History of arthroscopic knee surgery History of cataract surgery History of vasectomy Hx of cholecystectomy Social History (Reviewed 10/29/21 @ 13:11 by Vanita Erickson DIRECTOR OF BROADCAST, DIRECTOR OF BROADCAST-C) Smoking Status: Never smoker alcohol intake: never substance use type: does not use caffeine: No ROS ROS ED Constitutional Constitutional ED: Reports chills, fever(s) and subjective Eyes Eyes: Denies change in vision ENT ENT ED: Denies sore throat Cardiovascular Cardiovascular: Denies chest pain, palpitations or racing heartbeat Respiratory/Chest Respiratory/Chest: Denies cough or dyspnea Gastrointestinal Gastrointestinal: Denies abdominal pain, diarrhea, nausea or vomiting Genitourinary Genitourinary ED: Denies dysuria Musculoskeletal Musculoskeletal: Denies back pain or myalgias Integumentary Denies rash Neurologic Neurologic: Reports other Details: Positive dizziness ; Denies headache(s) Hematologic/Lymphatic Hematologic/Lymphatic: Reports easy bleeding and easy bruising EXAM Physical Exam Const Vital Signs: 12/18/21 01:53 12/18/21 02:04 12/18/21 02:44 Temperature 97.8 F Temperature Source Oral Pulse Rate 81 Pulse Rate [Lying] 72 Pulse Rate [Sitting (for 1 minute prior to obtaining)] 84 Pulse Rate [Standing (for 1 minute prior to obtaining)] 88 Respiratory Rate 21 H Respiratory Effort Normal Respiratory Pattern Normal Blood Pressure 95/53 L Blood Pressure [Lying] 108/93 H Blood Pressure [Sitting (for 1 minute prior to obtaining)] 117/61 Blood Pressure [Standing (for 1 minute prior to obtaining)] 119/78 Blood Pressure Mean 67 Blood Pressure Mean [Lying] 98 Blood Pressure Mean [Sitting (for 1 minute prior to obtaining)] 79 Blood Pressure Mean [Standing (for 1 minute prior to obtaining)] 91 Pulse Ox 100 Oxygen Delivery Method Room Air 12/18/21 02:52 12/18/21 03:00 12/18/21 04:00 Temperature 97.6 F L Temperature Source Temporal Pulse Rate 86 75 85 Pulse Rate [Lying] Pulse Rate [Sitting (for 1 minute prior to obtaining)] Pulse Rate [Standing (for 1 minute prior to obtaining)] Respiratory Rate 21 H 18 18 Respiratory Effort Respiratory Pattern Blood Pressure 121/67 H 126/80 H 118/68 Blood Pressure [Lying] Blood Pressure [Sitting (for 1 minute prior to obtaining)] Blood Pressure [Standing (for 1 minute prior to obtaining)] Blood Pressure Mean 85 95 84 Blood Pressure Mean [Lying] Blood Pressure Mean [Sitting (for 1 minute prior to obtaining)] Blood Pressure Mean [Standing (for 1 minute prior to obtaining)] Pulse Ox 100 100 100 Oxygen Delivery Method Room Air Room Air Room Air 12/18/21 05:00 Temperature Temperature Source Pulse Rate 78 Pulse Rate [Lying] Pulse Rate [Sitting (for 1 minute prior to obtaining)] Pulse Rate [Standing (for 1 minute prior to obtaining)] Respiratory Rate 17 Respiratory Effort Respiratory Pattern Blood Pressure 122/68 H Blood Pressure [Lying] Blood Pressure [Sitting (for 1 minute prior to obtaining)] Blood Pressure [Standing (for 1 minute prior to obtaining)] Blood Pressure Mean 86 Blood Pressure Mean [Lying] Blood Pressure Mean [Sitting (for 1 minute prior to obtaining)] Blood Pressure Mean [Standing (for 1 minute prior to obtaining)] Pulse Ox 99 Oxygen Delivery Method Room Air Positive well nourished, well developed and obese General Appearance ED: well developed Nutritional Appearance: obese HEENT Reports dry mucous membranes Mouth ED: Yes dry mucous membranes Mouth: dry mucous membranes Eyes PERRL and EOMs intact bilaterally Neck supple Resp normal respiratory effort and clear to auscultation bilaterally Cardio regular rate and regular rhythm Rate: other Other Details: Radial pulses are plus 2 out of 4 bilaterally are equal and symmetric Carotid pulses are equal as well GI normal to inspection, nondistended, normoactive bowel sounds, non-tender, non- distended and no masses GI Narrative: Obese soft nontender nondistended with normoactive bowel sounds. No voluntary guarding or rigidity no pulsatile mass Auscultation: normoactive bowel sounds Palpation: soft Extremity normal to inspection Neuro oriented x3, CN's II-XII intact bilaterally and no sensory deficits noted Neuro Narrative: Cranial nerves II through XII are grossly intact no focal neurologic deficits. No pronator drift no dysmetria no truncal ataxia. NIH stroke scale score of 0 Sensorium / Orientation: alert Psych mental status grossly normal Skin no rashes or lesions noted Skin Narrative: Skin turgor slightly increased MDM MDM MDM Narrative Medical decision making narrative: Patient presented to the ER with stable vitals and a normal neurologic exam. He reported intermittent bouts of feeling flushed/feverish and then lightheaded sensation. However those symptoms had spontaneous resolved by the time he reached the ER. Based on his complex medical history I did elect to perform basic laboratory studies mainly checking his heart and electrolytes as well as blood volume. As he reported no head injury had no headache and no symptoms in the ER did not feel there was a need for head CT. Blood work showed normal troponins as well as H&H. His white count is elevated at 20.1 but he has no signs of infection on the skin his lungs are clear his chest x-ray is normal. A urine sample was not added which does show mild infection with +1 bacteria and 5-10 white cells without skin contamination. The urine was therefore sent for culture and patient was started on Keflex. Because he reported having difficulty urinating recently I did elect to perform a CT scan to check for possible prostatic issues. This showed a prostatic cyst but no obvious signs of infection or urinary retention. After 1 L of fluid the patient was able to ambulate and walk with a steady gait. Neuro exam remains normal. Therefore at this time as he does not have exam findings to suggest systemic infection his neuro exam is normal and symptoms have resolved and have remained gone while he has been in the ER I feel he can be discharged and follow-up on an outpatient basis Lab Data Attestation: I reviewed the patient's lab results. Labs: Laboratory Results - last 24 hr 12/18/21 12/18/21 12/18/21 01:59 02:00 02:00 WBC 20.1 H RBC 5.03 Hgb 15.9 Hct 47.2 MCV 93.8 MCH 31.6 MCHC 33.7 RDW Std Deviation 41.6 RDW Coeff of Rajan 12.1 Plt Count 250 MPV 10.5 Immature Gran % (Auto) 0.700 Neut % (Auto) 76.8 H Lymph % (Auto) 13.4 L [place] % (Auto) 8.0 Eos % (Auto) 0.7 Baso % (Auto) 0.4 Absolute Neuts (auto) 15.5 H Absolute Lymphs (auto) 2.70 Nucleated RBC % 0 Differential Comment SCANNED Diff Path Review May foll Sodium 139 Potassium 4.6 Chloride 104 Carbon Dioxide 28.0 Anion Gap 7 BUN 24 H Creatinine 1.61 H Estim Creat Clear Calc 69.39 Est GFR (MDRD) Af Amer 58 L Est GFR (MDRD) Non-Af 48 L BUN/Creatinine Ratio 14.9 Glucose 134 H Calcium 10.1 Magnesium 2.4 Troponin I High Sens 4 Urine Color Urine Clarity Urine pH Ur Specific [place] Urine Protein Urine Glucose (UA) Urine Ketones Urine Occult Blood Urine Nitrite Urine Bilirubin Urine Urobilinogen Ur Leukocyte Esterase Urine RBC Urine WBC Ur Squamous Epith Cells Urine Bacteria Urine Mucus POC Glucose 127 H 12/18/21 12/18/21 03:35 04:22 WBC RBC Hgb Hct MCV MCH MCHC RDW Std Deviation RDW Coeff of Rajan Plt Count MPV Immature Gran % (Auto) Neut % (Auto) Lymph % (Auto) [place] % (Auto) Eos % (Auto) Baso % (Auto) Absolute Neuts (auto) Absolute Lymphs (auto) Nucleated RBC % Differential Comment Diff Path Review Sodium Potassium Chloride Carbon Dioxide Anion Gap BUN Creatinine Estim Creat Clear Calc Est GFR (MDRD) Af Amer Est GFR (MDRD) Non-Af BUN/Creatinine Ratio Glucose Calcium Magnesium Troponin I High Sens 3 Urine Color Yellow Urine Clarity Clear Urine pH 5.0 Ur Specific [place] 1.025 Urine Protein 30 H Urine Glucose (UA) Normal Urine Ketones 5 H Urine Occult Blood 150 H Urine Nitrite Negative Urine Bilirubin Negative Urine Urobilinogen 1 H Ur Leukocyte Esterase 25 H Urine RBC 0-5 SEEN Urine WBC 5-10 SEEN Ur Squamous Epith Cells 0-5 SEEN Urine Bacteria 1+ Urine Mucus 0 SEEN POC Glucose Radiography Diagnostic Testing: Clinical Impression(s) from Imaging Studies Chest X-Ray 12/18/21 02:30 IMPRESSION: 1. Low lung volumes limit the exam. No consolidations. 2. No acute cardiopulmonary abnormality. Electronically Signed: Dominick Balderas MD at 2:44 EDT , Abdomen/Pelvis CT 12/18/21 04:32 IMPRESSION: 1. No acute abdominal pelvic abnormality. 2. There is a well-circumscribed cyst measuring 1.9 cm involving the posterior superior aspect of the prostate at the origin of the seminal vesicles. This may represent a seminal vesicle cyst. 3. Cholecystectomy. Electronically Signed: Dominick Balderas MD at 5:19 EDT , Chest x-ray as interpreted by the emergency medicine physician reveals no acute infiltrate pneumothorax or pleural effusion Discharge Plan Triage Chief Complaint: Dizziness ED Provider: Jerry Valencia Dx/Rx/DC Orders Clinical Impression: UTI (urinary tract infection), Dizziness, Prostatic cyst, Mild dehydration Instructions: Urinary Tract Infections in Men, Prostate Anatomy Prescriptions: New cephalexin 500 mg capsule 500 mg PO TID 7 Days Qty: 21 0RF cephalexin 500 mg capsule 500 mg PO TID 7 Days Qty: 21 0RF No Action potassium chloride 20 mEq tablet extended release 20 meq PO DAILY Qty: 90 3RF pantoprazole [Protonix] 40 mg tablet,delayed release (DR/EC) 40 mg PO QDAY Qty: 90 3RF multivitamin 1 EACH tablet 1 tab PO DAILY lisinopril 20 mg tablet 20 mg PO BID Xarelto 20 mg tablet 20 mg PO DAILY Qty: 90 3RF Rx Instructions: must administer with evening meal spironolactone 25 mg tablet 25 mg PO DAILY Qty: 90 3RF diltiazem HCl 180 mg capsule,extended release 24hr 180 mg PO BID Qty: 180 3RF Primary Care Provider: Arlene Jj Referrals: Cristian Roman MD [Med Staff - Active Staff] - 3-5 Days Arlene Jj MD [Primary Care Provider] - Activity Restrictions/Additional Instructions: Please follow-up with urology because of the prostatic cyst found on today's CAT scan. Add the Keflex as directed for the next 7 days because of the mild bacteria/infection found in your urine and continue all of your medications as previously directed. Please also keep yourself well-hydrated and return to the ER should you have any further concerns Disposition Disposition: Home, Self Care
[2021-12-18] MEDS: Cephalexin 250 MG Capsule 500 MG PO (05:50)
[2021-12-20 13:33] LABS: Pathologist Review Reviewed
== END 2021-12-18 05:55 | disposition home or self-care (01) ==
PROVIDERS: Emergency Provider Emergency Medicine; PCP Internal Medicine; Visit Provider Emergency Medicine
DX: N39.0 Urinary tract infection, site not specified (principal); I42.8 Other cardiomyopathies; I48.0 Paroxysmal atrial fibrillation; R42 Dizziness and giddiness; N42.83 Cyst of prostate; E86.0 Dehydration; I10 Essential (primary) hypertension; G47.33 Obstructive sleep apnea (adult) (pediatric); K21.9 Gastro-esophageal reflux disease without esophagitis; E66.9 Obesity, unspecified; Z79.899 Other long term (current) drug therapy; Z79.01 Long term (current) use of anticoagulants
CPT/HCPCS: 71045; 74177; 80048; 81001; 82962; 83735; 84484; 85025; 87077; 87086; 87088; 87186; 93005; 99285; J7030; Q9967; A4216

== ENCOUNTER 2022-01-12 11:28 | Emergency (ER) | payer OTHER, SELFPAY ==
[2022-01-12 11:28] VITALS: BP 110/68; PULSE 94; RESP 16; TEMP 36.7; O2SAT 97; BMI 35.8
--- NOTE | 2022-01-12 11:35 | EKG12_ITS ---
Test Reason : CP Blood Pressure : / mmHG Vent. Rate : 088 BPM Atrial Rate : 088 BPM P-R Int : 186 ms QRS Dur : 084 ms QT Int : 342 ms P-R-T Axes : 044 -33 050 degrees QTc Int : 413 ms Normal sinus rhythm Left axis deviation Poor R wave progression Abnormal ECG Confirmed by YVETTE HAYWOOD, ALEXX ([id number]), editor & co founder NABIL DOBSON ([id number]) on 01/13/2022 10:49:23 AM Referred By: SOFÍA/RED Confirmed By:ALEXX CRAWFORD MD
[2022-01-12 12:11] LABS: Bacteria 0 SEEN /hpf (None Seen); Mucous, Urine 0 SEEN /hpf (<or=2+)
[2022-01-12 12:24] LABS: Absolute Lymphocyte Count 0.72 X10^3/uL (0.83-4.51); Absolute Neutrophil Count 3.7 X10^3/uL (2.0-7.7); Basophil# 0.02 X10^3/uL; Basophil% 0.4 % (0-1); Eosinophil# 0.02 X10^3/uL; Eosinophils% 0.4 % (0-5); Hematocrit 43.9 % (40-54); Hemoglobin 14.8 g/dL (13.0-16.5); Lymphocyte # 0.72 X10^3/ul (0.83-4.51); Lymphocyte % 14.5 % (19-41); Mean Corp Hgb Conc 33.7 g/dL (32-36); Mean Platelet Vol. 10.3 fl (6.2-12.0); Monocyte# 0.51 X10^3/uL; Monocyte% 10.3 % (0-10); NRBC Flagged by Analyzer 0 % (0-5); Neutrophil # 3.65 X10^3/uL (2.7-7.7); Neutrophil % 73.8 % (47-70); Platelet Count 147 K/mm3 (150-450); RBC Distribution Width SD 40.6 fl (35.1-43.9); Red Blood Count 4.77 M/mm3 (4.6-6.2)
[2022-01-12 12:25] LABS: Color, Urine Yellow (Yellow); Glucose, Dipstick Normal (Normal); Ketone-Dipstick 5 mg/dl (Negative); Leukocyte Esterase-Dipstick 25 /ul (Negative); Nitrite-Dipstick Negative (Negative); Occult Blood-Urine 150 /ul (Negative); Protein-Dipstick Negative (Negative); Specific Gravity, Urine 1.015 (1.002-1.030); Urine Bilirubin Dipstick Negative (Negative); Urine Clarity Sl. Cloudy (Clear); Urine Urobilinogen 4 mg/dl (Normal)
[2022-01-12 12:28] LABS: Anion Gap 3 (5-15); BUN 21 mg/dL (7-18); BUN/Creat Ratio 15.2 RATIO (10-20); Calcium,Total 9.1 mg/dL (8.5-10.1); Chloride 104 mmol/L (98-107); Creatinine, Serum 1.38 mg/dL (0.70-1.30); EST Glomerular Filtration Rate 57 mL/min (>60); Est Glom Filt Rate - Afr Amer 70 mL/min (>60); Estimated Creatinine Clearance 80.95 ml/min; Glucose 110 mg/dL (74-106); Potassium 4.3 mmol/L (3.5-5.1); Sodium Level 134 mmol/L (136-145)
[2022-01-12 12:35] LABS: Red Blood Cells-Urine 10-25 SEEN /hpf (0-5); Squamous Epithelial Cells - UA 0-5 SEEN /hpf (0-5); White Blood Cells 0-5 SEEN /hpf (0-5)
[2022-01-12 12:43] VITALS: BP 123/72; PULSE 80; RESP 17; O2SAT 96
[2022-01-12 13:14] VITALS: BP 121/75; PULSE 82; RESP 18; O2SAT 97
--- NOTE | 2022-01-12 13:15 | EDS_ITS ---
HPI History of Present Illness Chief Complaint: Dizziness Informant: patient Narrative Narrative: 51-year-old male presenting to the emergency department with a chief complaint of dizziness. He states that over the past several days when he goes to stand up he feels very lightheaded. He started Flomax about 1 week ago but has not taken it for the past couple days. He states that he otherwise feels okay. He notes a history of atrial fibrillation and a nonischemic cardiomyopathy. He does not take Xarelto and diltiazem has not had any changes in those medications. He denies any significant volume losses. He does report that he has had a fever over the past couple days. However no fevers today. The lightheadedness has been going on for several days. There is no spinning sensation. No headache. He denies any rashes cough sore throat vomiting elizabeth rrhea. No rashes. He went to urgent care and was referred to the emergency department. [facility] Medical History BMI 34.0-34.9,adult Essential (primary) hypertension GERD (gastroesophageal reflux disease) Left ventricular hypertrophy Lightheadedness Non-ischemic cardiomyopathy Obesity Obstructive sleep apnea Palpitations Paroxysmal atrial fibrillation Vasovagal syncope Home Medications multivitamin 1 tab PO DAILY Supplement 09/13/17 [History Last Taken 09/13/17 09:00] pantoprazole 40 mg tablet,delayed release (Protonix) 40 mg PO QDAY #90 tabs 01/05/21 [Rx Last Taken Unknown] potassium chloride 20 mEq tablet,extended release 20 meq PO DAILY #90 tabs 04/22/21 [Rx Last Taken Unknown] rivaroxaban 20 mg tablet (Xarelto) 20 mg PO DAILY #90 tabs 06/03/21 [Rx Last Taken Unknown] spironolactone 25 mg tablet 25 mg PO DAILY #90 tabs 06/03/21 [Rx Last Taken Unknown] diltiazem HCl 180 mg capsule,extended release 24 hr 180 mg PO BID #180 caps 07/13/21 [Rx Last Taken Unknown] cephalexin 500 mg capsule 500 mg PO TID 7 days #21 caps 12/18/21 [Rx Last Taken Unknown] cephalexin 500 mg capsule 500 mg PO TID 7 days #21 caps 12/18/21 [Rx Last Taken Unknown] lisinopril 20 mg tablet 20 mg PO DAILY 01/07/22 [History Last Taken Unknown] tamsulosin 0.4 mg capsule (Flomax) 0.4 mg PO DAILY #30 caps 01/07/22 [Rx Last Taken Unknown] Allergy/AdvReac Type Severity Reaction Status Date / Time doxazosin [From Cardura] AdvReac Intermediate Vasovagal/l Verified 01/12/22 11:28 ightheaded Family History Mother Hypertension Diabetes Cancer Father Hypotension Surgical History History of arthroscopic knee surgery History of cataract surgery History of vasectomy Hx of cholecystectomy Social History Smoking Status: Never smoker alcohol intake: never substance use type: does not use caffeine: No ROS ROS ED ROS Narrative Generalized weakness and lightheadedness Constitutional Constitutional ED: Reports fever(s); Denies chills or weight loss Eyes Eyes: Denies change in vision or diplopia ENT ENT ED: Denies ear pain, rhinorrhea or sore throat Cardiovascular Cardiovascular: Denies chest pain, orthopnea, palpitations or racing heartbeat Respiratory/Chest Respiratory/Chest: Denies cough, dyspnea or orthopnea Gastrointestinal Gastrointestinal: Denies abdominal pain, diarrhea, nausea or vomiting Genitourinary Genitourinary ED: Denies dysuria, hematuria or urinary frequency Musculoskeletal Musculoskeletal: Denies arthralgias or myalgias Integumentary Denies abscess or rash Neurologic Neurologic: Denies headache(s) or weakness Psychiatric Psychiatric: Denies anxiety, depression, suicidal ideation or suicidal thoughts Endocrine Endocrinology: Denies polydipsia, polyphagia or polyuria Allergic/Immunologic Allergic/Immunologic ED: Denies mouth swelling, tongue swelling or urticaria EXAM Physical Exam Const Vital Signs: 01/12/22 11:28 01/12/22 11:41 01/12/22 12:43 Temperature 98.0 F Temperature Source Temporal Pulse Rate 94 80 Pulse Rate [Lying] Pulse Rate [Sitting (for 1 minute prior to obtaining)] Pulse Rate [Standing (for 1 minute prior to obtaining)] Respiratory Rate 16 17 Respiratory Effort Normal Non-Labored Respiratory Pattern Normal Blood Pressure 110/68 123/72 H Blood Pressure [Lying] Blood Pressure [Sitting (for 1 minute prior to obtaining)] Blood Pressure [Standing (for 1 minute prior to obtaining)] Blood Pressure Mean 82 89 Blood Pressure Mean [Lying] Blood Pressure Mean [Sitting (for 1 minute prior to obtaining)] Blood Pressure Mean [Standing (for 1 minute prior to obtaining)] Pulse Ox 97 96 Oxygen Delivery Method Room Air Room Air 01/12/22 13:14 01/12/22 13:31 01/12/22 15:00 Temperature Temperature Source Pulse Rate 82 82 Pulse Rate [Lying] 78 Pulse Rate [Sitting (for 1 minute prior to obtaining)] 90 Pulse Rate [Standing (for 1 minute prior to obtaining)] 100 Respiratory Rate 18 15 Respiratory Effort Respiratory Pattern Blood Pressure 121/75 H 123/77 H Blood Pressure [Lying] 128/78 H Blood Pressure [Sitting (for 1 minute prior to obtaining)] 121/74 H Blood Pressure [Standing (for 1 minute prior to obtaining)] 128/86 H Blood Pressure Mean 90 92 Blood Pressure Mean [Lying] 94 Blood Pressure Mean [Sitting (for 1 minute prior to obtaining)] 89 Blood Pressure Mean [Standing (for 1 minute prior to obtaining)] 100 Pulse Ox 97 97 Oxygen Delivery Method Room Air Room Air Positive well nourished and well developed General Appearance ED: well developed HEENT Reports normocephalic, head/scalp atraumatic and moist mucous membranes Eyes PERRL and EOMs intact bilaterally Neck no lymphadenopathy, supple and no JVD Resp normal respiratory effort and clear to auscultation bilaterally Cardio regular rate, regular rhythm and no murmurs GI normal to inspection, nondistended, normoactive bowel sounds and non-tender Palpation: soft Back/Spine no CVA tenderness and normal ROM Extremity normal to inspection General Extremety ED: Negative for edema General Extremity: Negative for edema Neuro oriented x3 and CN's II-XII intact bilaterally Sensorium / Orientation: alert Motor Exam: strength 5/5 throughout Psych mental status grossly normal Mood & Affect: Negative for depressed or tearful Skin no rashes or lesions noted and no wounds MDM MDM MDM Narrative Medical decision making narrative: Patient's white count is 5 hemoglobin of 14.8. Urinalysis 10-25 red cells but no overt infection. BMP negative. Troponin is normal. COVID is negative. He has had no events on the monitor. At this point I do not have a strong etiology for why the patient is getting lightheaded when he stands. He is not orthostatic and the Flomax is out of his system. His vital signs are otherwise negative. His blood work is encouraging. I will have the patient discharged home. Return if any new symptoms or any other concerns Lab Data Attestation: I reviewed the patient's lab results. Labs: Laboratory Results - last 24 hr 01/12/22 01/12/22 01/12/22 12:00 12:00 12:00 WBC 5.0 RBC 4.77 Hgb 14.8 Hct 43.9 MCV 92.0 MCH 31.0 MCHC 33.7 RDW Std Deviation 40.6 RDW Coeff of Rajan 12.0 Plt Count 147 L MPV 10.3 Immature Gran % (Auto) 0.600 Neut % (Auto) 73.8 H Lymph % (Auto) 14.5 L [place] % (Auto) 10.3 H Eos % (Auto) 0.4 Baso % (Auto) 0.4 Absolute Neuts (auto) 3.7 Absolute Lymphs (auto) 0.72 L Nucleated RBC % 0 Sodium 134 L Potassium 4.3 Chloride 104 Carbon Dioxide 27.0 Anion Gap 3 L BUN 21 H Creatinine 1.38 H Estim Creat Clear Calc 80.95 Est GFR (MDRD) Af Amer 70 Est GFR (MDRD) Non-Af 57 L BUN/Creatinine Ratio 15.2 Glucose 110 H Calcium 9.1 Troponin I High Sens Urine Color Yellow Urine Clarity Sl. Cloudy Urine pH 6.0 Ur Specific [place] 1.015 Urine Protein Negative Urine Glucose (UA) Normal Urine Ketones 5 H Urine Occult Blood 150 H Urine Nitrite Negative Urine Bilirubin Negative Urine Urobilinogen 4 H Ur Leukocyte Esterase 25 H Urine RBC 10-25 SEEN Urine WBC 0-5 SEEN Ur Squamous Epith Cells 0-5 SEEN Urine Bacteria 0 SEEN Urine Mucus 0 SEEN 01/12/22 12:00 WBC RBC Hgb Hct MCV MCH MCHC RDW Std Deviation RDW Coeff of Rajan Plt Count MPV Immature Gran % (Auto) Neut % (Auto) Lymph % (Auto) [place] % (Auto) Eos % (Auto) Baso % (Auto) Absolute Neuts (auto) Absolute Lymphs (auto) Nucleated RBC % Sodium Potassium Chloride Carbon Dioxide Anion Gap BUN Creatinine Estim Creat Clear Calc Est GFR (MDRD) Af Amer Est GFR (MDRD) Non-Af BUN/Creatinine Ratio Glucose Calcium Troponin I High Sens 4 Urine Color Urine Clarity Urine pH Ur Specific [place] Urine Protein Urine Glucose (UA) Urine Ketones Urine Occult Blood Urine Nitrite Urine Bilirubin Urine Urobilinogen Ur Leukocyte Esterase Urine RBC Urine WBC Ur Squamous Epith Cells Urine Bacteria Urine Mucus EKG Initial EKG: Attestation: I personally reviewed and interpreted this EKG as follows: Comments: Normal sinus rhythm ventricular rate of 88 bpm Discharge Plan Triage Chief Complaint: Dizziness ED Provider: Manolo Nichols Dx/Rx/DC Orders Clinical Impression: Dizziness, Non-ischemic cardiomyopathy, Acute febrile illness Instructions: ED Dizziness, Uncertain Cause Prescriptions: No Action potassium chloride 20 mEq tablet extended release 20 meq PO DAILY Qty: 90 3RF pantoprazole [Protonix] 40 mg tablet,delayed release (DR/EC) 40 mg PO QDAY Qty: 90 3RF multivitamin 1 EACH tablet 1 tab PO DAILY cephalexin 500 mg capsule 500 mg PO TID 7 Days Qty: 21 0RF cephalexin 500 mg capsule 500 mg PO TID 7 Days Qty: 21 0RF Xarelto 20 mg tablet 20 mg PO DAILY Qty: 90 3RF Rx Instructions: must administer with evening meal spironolactone 25 mg tablet 25 mg PO DAILY Qty: 90 3RF diltiazem HCl 180 mg capsule,extended release 24hr 180 mg PO BID Qty: 180 3RF tamsulosin [Flomax] 0.4 mg capsule 0.4 mg PO DAILY Qty: 30 3RF lisinopril 20 mg tablet 20 mg PO DAILY Primary Care Provider: Arlene Jj Referrals: Arlene Jj MD [Primary Care Provider] - Disposition Disposition: Home, Self Care
[2022-01-12 13:31] VITALS: BP 121/74; BP 128/78; BP 128/86; PULSE 100; PULSE 78; PULSE 90
[2022-01-12 13:45] LABS: Troponin-I HS 4 pg/mL (3.0-78.0)
[2022-01-12 15:00] VITALS: BP 123/77; PULSE 82; RESP 15; O2SAT 97
[2022-01-12 15:24] VITALS: BP 123/77; PULSE 82; RESP 16; O2SAT 97
== END 2022-01-12 15:26 | disposition home or self-care (01) ==
PROVIDERS: Emergency Provider Emergency Medicine; PCP Internal Medicine; Visit Provider Emergency Medicine
DX: R42 Dizziness and giddiness (principal); I42.8 Other cardiomyopathies; R50.9 Fever, unspecified; G47.33 Obstructive sleep apnea (adult) (pediatric)
CPT/HCPCS: 80048; 81001; 84484; 85025; 87811; 93005; 99284

== ENCOUNTER → 2022-05-03 | Outpatient (CLI) | payer OTHER, SELFPAY ==
--- NOTE | 2022-05-03 09:47 | CDU_ITS ---
Reason For Study: dizziness Rt. Velocities/BP Lt. Velocities/BP Prox CCA 74.9/11.6 cm/sec. Prox CCA 97.4/24.3 cm/sec. Mid CCA 74.0/17.3 cm/sec. Mid CCA 74.0/22.5 cm/sec. Dist CCA 74.0/19.2 cm/sec. Dist CCA 77.7/16.3 cm/sec. Prox ICA 61.9/15.7 cm/sec. Prox ICA 45.8/11.4 cm/sec. Mid ICA 70.7/23.4 cm/sec. Mid ICA 75.3/26.2 cm/sec. Dist ICA 97.1/33.3 cm/sec. Dist ICA 109.7/33.5 cm/sec. Rt. ICA/CCA = 1.3. Lt. ICA/CCA = 1.5. Prox ECA 103.6/13.5 cm/sec. Prox ECA 109.7/20.0 cm/sec. Rt. Vert. 41.3/8.1 cm/sec. Lt. Vert. 47.0/9.0 cm/sec. Right Extracranial There is homogeneous, smooth atherosclerotic plaque noted in the right common carotid artery. There is heterogeneous, irregular atherosclerotic plaque noted in the right internal carotid artery. There is intimal thickening but no significant atherosclerotic plaque noted in the right external carotid artery. Antegrade flow is noted in the right vertebral artery. Left Extracranial There is intimal thickening but no significant atherosclerotic plaque noted in the left common carotid artery. There is homogeneous, smooth atherosclerotic plaque noted in the left internal carotid artery. There is intimal thickening but no significant atherosclerotic plaque noted in the left external carotid artery. Antegrade flow is noted in the left vertebral artery. Procedure Carotid Duplex 50418. This is a Carotid Duplex examination using B-mode, color flow and specral Doppler. The exam was diagnostic. Exam performed in department. VL/Carotid Duplex Ultrasound Interpretation Summary Mild (<50%) stenosis right extracranial internal carotid. Mild (<50%) stenosis left extracranial internal carotid. Patent and antegrade vertebrals bilaterally. Ordering Physician: Vanita Erickson Performed By: Carlos Cornejo RVT
[2022-05-03 11:07] LABS: Anion Gap 8 (5-15); BUN 19 mg/dL (7-18); BUN/Creat Ratio 14.5 RATIO (10-20); Calcium,Total 9.3 mg/dL (8.5-10.1); Chloride 108 mmol/L (98-107); Creatinine, Serum 1.31 mg/dL (0.70-1.30); EST Glomerular Filtration Rate 61 mL/min (>60); Est Glom Filt Rate - Afr Amer 74 mL/min (>60); Glucose 129 mg/dL (74-106); Sodium Level 141 mmol/L (136-145)
== END | disposition home or self-care (01) ==
PROVIDERS: PCP Internal Medicine; Referring Provider Nurse Practitioner Gerontology; Visit Provider Nurse Practitioner Gerontology
DX: R42 Dizziness and giddiness (principal)
CPT/HCPCS: 36415; 80048; 93880

== ENCOUNTER → 2022-08-30 | Outpatient (CLI) | payer OTHER, SELFPAY ==
[2022-08-30 11:49] LABS: PSA,Total - Annual Screen 5.13 ng/mL (0.00-4.00)
== END | disposition home or self-care (01) ==
LOC: LAB 10:44
PROVIDERS: PCP Internal Medicine; Referring Provider Urology; Visit Provider Urology
DX: Z12.5 Encounter for screening for malignant neoplasm of prostate (principal)
CPT/HCPCS: 36415; 84153; G0103

== ENCOUNTER 2022-09-27 02:07 | Emergency (ER) | payer OTHER, SELFPAY ==
[2022-09-27 02:08] VITALS: BP 163/99; PULSE 136; RESP 14; TEMP 36.8; O2SAT 97; BMI 35.9
--- NOTE | 2022-09-27 02:29 | EKG12_ITS ---
Test Reason : REPEAT EKG Blood Pressure : / mmHG Vent. Rate : 098 BPM Atrial Rate : 277 BPM P-R Int : 000 ms QRS Dur : 102 ms QT Int : 338 ms P-R-T Axes : 249 -45 041 degrees QTc Int : 431 ms Atrial flutter with variable A-V block Left anterior fascicular block Abnormal ECG Confirmed by CONOR HAYWOOD, ISABEL ([id number]), editorial writer NABIL DOBSON ([id number]) on 09/28/2022 10:14:20 AM Referred By: JULIA Confirmed By:ISABEL PERDOMO MD
--- NOTE | 2022-09-27 02:29 | RAD_ITS ---
STUDY: X-RAY CHEST REASON FOR EXAM: Male, 52 years old. Cardiomegaly TECHNIQUE: Single AP portable view x2 of the chest. COMPARISON: December 18, 2021 chest x-ray FINDINGS: The lungs are clear and expanded. There is no demonstrated pleural abnormality. There is borderline cardiomegaly. Normal mediastinum and lauryn. Normal visualized pulmonary arteries. There is atherosclerotic tortuosity of the aortic arch and descending thoracic aorta. Normal visualized thoracic spine. Normal visualized ribs, clavicles, and shoulders. There is no demonstrated abnormality of the visualized soft tissue structures of the upper abdomen. RAD/Chest 1 View (Portable) IMPRESSION: Borderline cardiac enlargement. No demonstrated acute cardiopulmonary process. Electronically Signed: Leyda Gonzalez MD at 3:03 EDT ,
--- NOTE | 2022-09-27 02:30 | EDS_ITS ---
HPI History of Present Illness Chief Complaint: Palpitations Informant: patient and spouse/S.O. Narrative Narrative: Patient presents with palpitations. Patient has been feeling fine recently. He woke up this morning he has palpitations with his heart racing. He is not having chest pain or shortness of breath. He has had atrial fibrillation before but this does not feel like that. He is on Xarelto because of the atrial fibrillation. Only new medicine is C elebrex which she started about a month ago for a knee replacement. He has not been coughing short of breath or having hemoptysis. He does state that just tonight he is feeling a little bit warm like he might be coming down with a viral type illness. But he is not coughing. On review of systems I find out that he does have some polyuria at night. He has had prostate issues before but is not having pain. But he does have urgency and frequency which is also new. [facility] Medical History BMI 34.0-34.9,adult Essential (primary) hypertension GERD (gastroesophageal reflux disease) Left ventricular hypertrophy Lightheadedness Non-ischemic cardiomyopathy Obesity Obstructive sleep apnea Palpitations Paroxysmal atrial fibrillation Vasovagal syncope Home Medications multivitamin 1 tab PO DAILY Supplement 09/13/17 [History Last Taken 09/13/17 09:00] pantoprazole 40 mg tablet,delayed release (Protonix) 40 mg PO QDAY #90 tabs 01/05/21 [Rx Last Taken Unknown] potassium chloride 20 mEq tablet,extended release 20 meq PO DAILY #90 tabs 02/15/22 [Rx Last Taken Unknown] alfuzosin 10 mg tablet,extended release 24 hr 10 mg PO DAILY 03/25/22 [History Last Taken Unknown] rivaroxaban 20 mg tablet (Xarelto) 20 mg PO DAILY #90 tabs 05/27/22 [Rx Last Taken Unknown] diltiazem HCl 180 mg capsule,extended release 24 hr 180 mg PO BID #180 caps 07/01/22 [Rx Last Taken Unknown] celecoxib 200 mg capsule (Celebrex) 200 mg PO DAILY 08/26/22 [History Last Taken Unknown] lisinopril 5 mg tablet 5 mg PO DAILY #90 tabs 09/19/22 [Rx Last Taken Unknown] metoprolol tartrate 25 mg tablet 25 mg PO BID PRN Heart rate over 100 #60 tabs 09/27/22 [Rx Last Taken Unknown] Allergy/AdvReac Type Severity Reaction Status Date / Time doxazosin [From Cardura] AdvReac Intermediate Vasovagal/l Verified 09/27/22 02:11 ightheaded Family History Mother Hypertension Diabetes Cancer Father Hypotension Surgical History History of arthroscopic knee surgery History of cataract surgery History of vasectomy Hx of cholecystectomy Social History Smoking Status: Never smoker alcohol intake: never substance use type: does not use caffeine: No ROS ROS ED Constitutional Constitutional ED: Reports subjective Eyes Eyes: Denies blurry vision ENT ENT ED: Denies rhinorrhea or sore throat Cardiovascular Cardiovascular: Reports palpitations; Denies chest pain or racing heartbeat Respiratory/Chest Respiratory/Chest: Denies cough or dyspnea Gastrointestinal Gastrointestinal: Denies abdominal pain, nausea or vomiting Genitourinary Genitourinary ED: Reports urinary frequency Musculoskeletal Musculoskeletal: Denies myalgias Integumentary Denies rash Neurologic Neurologic: Denies headache(s) Endocrine Endocrinology: Reports polyuria; Denies polydipsia Hematologic/Lymphatic Hematologic/Lymphatic: Reports easy bleeding and easy bruising Allergic/Immunologic Allergic/Immunologic ED: Denies urticaria EXAM Physical Exam Narrative Exam Narrative: CONSTITUTIONAL: Patient is nontoxic in appearance. The patient looks comfortable. Work of breathing looks normal. He is not pale diaphoretic or dyspneic. HEENT: No notable trauma. Mucous membranes do look moist. EYES: No conjunctival injection. No proptosis. No pallor or icterus. NECK:No JVD. No stridor. CARDIOVASCULAR: Tachycardic rate. It does sound like he has a regular rhythm. No notable murmur. No JVD. When I first see him he is not on the monitor. So I cannot look at the monitor leads. We will get him on the monitor and look at this to try to decipher if he is in atrial fibrillation or a sinus tachycardia. RESPIRATORY: No respiratory distress. Breathing is unlabored. No wheezes. No rhonchi. No rales. No pain with a deep breath. No chest wall tenderness. GASTROINTESTINAL: Not distended. Bowel sounds are normal. No tenderness. No guarding. No rebound. No palpable mass. No bruit is heard. GENITOURINARY: No tenderness over the bladder. No CVA tenderness. MUSCULOSKELETAL: Atraumatic. No peripheral edema. No cord. No tenderness along the deep venous system. No asymmetry. No distended veins. NEUROLOGICAL: Patient is alert and appropriate. No focal deficit noted. SKIN: No noted rashes. No diaphoresis. PSYCHIATRIC: Patient is calm. Mood is appropriate. Const Vital Signs: 09/27/22 02:08 09/27/22 03:23 09/27/22 04:42 Temperature 98.3 F Temperature Source Oral Pulse Rate 136 H 136 H 107 H Respiratory Rate 14 25 H 22 H Blood Pressure 163/99 H 141/99 H 126/81 H Blood Pressure Mean 120 113 96 Pulse Ox 97 98 96 Oxygen Delivery Method Room Air Room Air Room Air 09/27/22 05:16 Temperature Temperature Source Pulse Rate 97 Respiratory Rate 18 Blood Pressure 111/52 L Blood Pressure Mean 71 Pulse Ox 97 Oxygen Delivery Method Room Air MDM MDM MDM Narrative Medical decision making narrative: Patient CBC shows no marked abnormalities. Patient's electrolytes shows no marked abnormalities. He does have mild elevation of glucose at 146. This can be rechecked. Troponin is negative at 5. Urinalysis is clean. No sign of infection blood or excessive glucose. My independent interpretation the patient's single view but to image AP chest x- ray shows no sign of effusion or infiltrate or acute process. Final reading does note some borderline cardiac enlargement but no demonstrated acute cardiopu lmonary process. I have checked the monitor multiple times on this patient. I am suspicious that there is atrial fibrillation as I am seeing a little bit more beat to beat variation. I am wondering if his EKG initially showed a short section of atrial fibrillation followed by a section of atrial flutter because it was so regular. I did give him a small dose of 5 mg of metoprolol. His heart rate is about 85 now. It looks more like atrial fibrillation as there is some [id number] variation and I am not seeing P waves. We are repeating an EKG. Repeat EKG shows atrial flutter with variable block. However, on the monitor there are times where he does look to be in atrial fibrillation also. His rate is currently about 98. He feels well. It ends up that patient may have missed his meds last night including the Xarelto. Yesterday was also his first day back at work after a few months. He feels well. He has a history of intermittent A-fib flutter. He is not hypotensive. He has gotten up and walked around the department without difficulty. 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 He states in the past, his heart rate has gone back into normal within 1 to 3 days. If this happens he may not need cardioversion. If he does not convert he may end up needing cardioversion in the near future. We will have him back on his medicine and I will give him his diltiazem which she is due for. I will write for a low-dose of metoprolol that he can take if his heart rate is going over 100. He has an Apple Watch that has been correlating well with our heart rates here so he can watch this closely. If he has lightheadedness chest pain dyspnea weakness or any other concerns or poorly controlled rate they should return or call 911. Lab Data Attestation: I reviewed the patient's lab results. Labs: Laboratory Results - last 24 hr 09/27/22 09/27/22 09/27/22 02:15 02:58 04:39 WBC 5.3 RBC 5.54 Hgb 16.5 Hct 49.0 MCV 88.4 MCH 29.8 MCHC 33.7 RDW Std Deviation 41.2 RDW Coeff of Rajan 12.6 Plt Count 154 MPV 10.3 Immature Gran % (Auto) 0.200 Neut % (Auto) 63.9 Lymph % (Auto) 22.0 Bollinger % (Auto) 10.9 H Eos % (Auto) 2.4 Baso % (Auto) 0.6 Absolute Neuts (auto) 3.4 Absolute Lymphs (auto) 1.17 Nucleated RBC % 0 Sodium 142 Potassium 3.6 Chloride 110 H Carbon Dioxide 30.0 Anion Gap 2 L BUN 15 Creatinine 1.26 Estim Creat Clear Calc 87.65 Est GFR (MDRD) Af Amer 77 Est GFR (MDRD) Non-Af 64 BUN/Creatinine Ratio 11.9 Glucose 146 H Calcium 9.5 Troponin I High Sens 5 9 Urine Color Yellow Urine Clarity Clear Urine pH 7.0 Ur Specific Hundred 1.005 Urine Protein Negative Urine Glucose (UA) Normal Urine Ketones Negative Urine Occult Blood 25 H Urine Nitrite Negative Urine Bilirubin Negative Urine Urobilinogen Normal Ur Leukocyte Esterase Negative Urine RBC 0 SEEN Urine WBC 0 SEEN Ur Squamous Epith Cells 0 SEEN Urine Bacteria 0 SEEN Urine Mucus 0 SEEN Radiography Diagnostic Testing: Clinical Impression(s) from Imaging Studies Chest X-Ray 09/27/22 02:29 IMPRESSION: Borderline cardiac enlargement. No demonstrated acute cardiopulmonary process. Electronically Signed: Leyda Gonzalez MD at 3:03 EDT , EKG Initial EKG: Comments: My independent interpretation of the EKG done for sinus tachycardia shows what appears to be a regular rhythm but tachycardic at 127. No ventricular ectopy is noted. Nonspecific ST and T wave change but no acute indication of infarct or ischemia. Computer reads SC interval, QRS duration and QTc is normal. The last three quarters of this patient's EKG do appear to be very regular in May is out consistently. But the beginning has irregularity and difficult to see a consistent P wave or SC interval. This leads me to believe that there may be a component of atrial fibrillation. It is also possib le that this is atrial flutter with a 2-1 block. Follow-up EKG: Comments: My independent interpretation of the patient's repeat EKG after metoprolol shows atrial fibrillation/flutter with variable block. Overall rate is 98. No acute ST elevation or depression. QRS duration and QTc are normal. Discharge Plan Triage Chief Complaint: Palpitations ED Provider: Bhupendra Tyson Dx/Rx/DC Orders Clinical Impression: Atrial fibrillation and flutter, Anticoagulation adequate Instructions: ED AFIB Prescriptions: New metoprolol tartrate 25 mg tablet 25 mg PO BID PRN (Reason: Heart rate over 100) Qty: 60 0RF No Action pantoprazole [Protonix] 40 mg tablet,delayed release (DR/EC) 40 mg PO QDAY Qty: 90 3RF alfuzosin 10 mg tablet extended release 24 hr 10 mg PO DAILY Rx Instructions: administer after the same meal each day multivitamin 1 EACH tablet 1 tab PO DAILY potassium chloride 20 mEq tablet extended release 20 meq PO DAILY Qty: 90 3RF Xarelto 20 mg tablet 20 mg PO DAILY Qty: 90 3RF Rx Instructions: must administer with evening meal diltiazem HCl 180 mg capsule,extended release 24hr 180 mg PO BID Qty: 180 3RF celecoxib [Celebrex] 200 mg capsule 200 mg PO DAILY lisinopril 5 mg tablet 5 mg PO DAILY Qty: 90 3RF Primary Care Provider: Arlene Jj Referrals: Blayne Ibarra MD [Med Staff - Active Staff] - As soon as possible (Call in the morning for an appointment) Arlene Jj MD [Primary Care Provider] - Disposition Disposition: Home, Self Care
[2022-09-27 02:36] LABS: Absolute Lymphocyte Count 1.17 X10^3/uL (0.83-4.51); Absolute Neutrophil Count 3.4 X10^3/uL (2.0-7.7); Basophil# 0.03 X10^3/uL; Basophil% 0.6 % (0-1); Eosinophil# 0.13 X10^3/uL; Eosinophils% 2.4 % (0-5); Hemoglobin 16.5 g/dL (13.0-16.5); Lymphocyte # 1.17 X10^3/ul (0.83-4.51); Mean Corp Hgb Conc 33.7 g/dL (32-36); Mean Corpuscular Hgb 29.8 pg (27.0-32.0); Mean Corpuscular Volume 88.4 fL (80-94); Mean Platelet Vol. 10.3 fl (6.2-12.0); Monocyte# 0.58 X10^3/uL; Monocyte% 10.9 % (0-10); NRBC Flagged by Analyzer 0 % (0-5); Neutrophil # 3.41 X10^3/uL (2.7-7.7); Neutrophil % 63.9 % (47-70); Platelet Count 154 K/mm3 (150-450); RBC Distribution Width CV 12.6 % (11.6-14.6); RBC Distribution Width SD 41.2 fl (35.1-43.9); Red Blood Count 5.54 M/mm3 (4.6-6.2); White Blood Count 5.3 K/mm3 (4.4-11.0)
[2022-09-27] MEDS: 0.9% Normal Saline 1,000 ML 1000 ML IV (02:37)
[2022-09-27 02:50] LABS: Anion Gap 2 (5-15); BUN 15 mg/dL (7-18); BUN/Creat Ratio 11.9 RATIO (10-20); Calcium,Total 9.5 mg/dL (8.5-10.1); Chloride 110 mmol/L (98-107); Creatinine, Serum 1.26 mg/dL (0.70-1.30); EST Glomerular Filtration Rate 64 mL/min (>60); Est Glom Filt Rate - Afr Amer 77 mL/min (>60); Estimated Creatinine Clearance 87.65 ml/min; Glucose 146 mg/dL (74-106); Potassium 3.6 mmol/L (3.5-5.1); Sodium Level 142 mmol/L (136-145); Troponin-I HS (w/2H Reflex) 5 pg/mL (3.0-78.0)
[2022-09-27 03:05] LABS: Bacteria 0 SEEN /hpf (None Seen); Mucous, Urine 0 SEEN /hpf (<or=2+); Red Blood Cells-Urine 0 SEEN /hpf (0-5); Squamous Epithelial Cells - UA 0 SEEN /hpf (0-5); White Blood Cells 0 SEEN /hpf (0-5)
[2022-09-27 03:07] LABS: Color, Urine Yellow (Yellow); Glucose, Dipstick Normal (Normal); Ketone-Dipstick Negative (Negative); Leukocyte Esterase-Dipstick Negative /ul (Negative); Nitrite-Dipstick Negative (Negative); Occult Blood-Urine 25 /ul (Negative); Protein-Dipstick Negative (Negative); Specific Gravity, Urine 1.005 (1.002-1.030); Urine Bilirubin Dipstick Negative (Negative); Urine Clarity Clear (Clear); Urine Urobilinogen Normal (Normal)
[2022-09-27 03:23] VITALS: BP 141/99; PULSE 136; RESP 25; O2SAT 98
[2022-09-27] MEDS: Metoprolol Tartrate 5 MG/5 ML Vial IV (03:29)
--- NOTE | 2022-09-27 03:40 | EKG12_ITS ---
Test Reason : PALPITATIONS Blood Pressure : / mmHG Vent. Rate : 127 BPM Atrial Rate : 127 BPM P-R Int : 166 ms QRS Dur : 082 ms QT Int : 322 ms P-R-T Axes : 000 -61 074 degrees QTc Int : 467 ms Sinus tachycardia Left anterior fascicular block Nonspecific ST abnormality Abnormal ECG Confirmed by CONOR HAYWOOD, ISABEL ([id number]), non linear editor NABIL DOBSON ([id number]) on 09/28/2022 10:14:33 AM Referred By: JULIA Confirmed By:ISABEL PERDOMO MD
[2022-09-27 04:33] LABS: Reflex Troponin-HS? (from REC) Y
[2022-09-27 04:42] VITALS: BP 126/81; PULSE 107; RESP 22; O2SAT 96
[2022-09-27 05:06] LABS: Troponin-I HS 9 pg/mL (3.0-78.0)
[2022-09-27 05:16] VITALS: BP 111/52; PULSE 97; RESP 18; O2SAT 97
[2022-09-27] MEDS: dilTIAZem CD 180 MG Capsule PO (05:47)
[2022-09-27 05:51] VITALS: BP 111/90; PULSE 98; RESP 18; O2SAT 97
== END 2022-09-27 05:52 | disposition home or self-care (01) ==
PROVIDERS: Emergency Provider Emergency Medicine; PCP Internal Medicine; Visit Provider Emergency Medicine
DX: I48.91 Unspecified atrial fibrillation (principal); I48.92 Unspecified atrial flutter; G47.33 Obstructive sleep apnea (adult) (pediatric); Z79.01 Long term (current) use of anticoagulants; Z79.899 Other long term (current) drug therapy
CPT/HCPCS: 71045; 80048; 81001; 84484; 85025; 87086; 87428; 93005; 96361; 96374; 99283; J7030; A4216

== ENCOUNTER → 2022-09-29 | Day surgery (SDC) | payer OTHER, SELFPAY ==
--- NOTE | 2022-09-28 11:36 | PCM.HP.BLA ---
History and Physical Date of Admission: 09/29/22 ARTI HUGGINS, is a 52 M who presents to the [facility] today for a cardioversion. He has a history of paroxysmal atrial fibrillation, vasovagal syncope with blood draws and needle sticks, significant sleep apnea with CPAP therapy/treatment, and hypertension. He did unfortunately contract Covid in March of this year. He was started on Cardura due to high blood pressure and got dizzy and so this was discontinued. You remember that his last echocardiogram was in 2017 demonstrating an ejection fraction of 45% with mild global hypokinesis. In December 2020 he had a 30-day monitor for syncope which demonstrated no evidence of atrial fibrillation or pauses. His echocardiogram from November of 2021 demonstrated an improved ejection fraction of 65%. He had an ECG on 09/27/2022 in the Emergency Department that showed elevated heart rate and atrial fibrillation/flutter. His metoprolol was advanced on 09/28/2022 as well as plan to undergo cardioversion. He states palpitations. He denies chest pain, pressure or heaviness. He does have SOB with over exertion. He denies Orthopnea, and PND. He does wear a CPAP nightly. He does not have bleeding issues; no blood in urine, stool or nosebleeds. He denies any decrease in energy level, myalgias, or claudication. He denies edema, or sudden weight gain. He does have an occasional dizziness with quick positional changes. He denies lightheadedness, syncopal or near syncopal episodes, and headaches. Intake Vital Signs: See EMR Intake Visit Reasons: DCCV Allergies doxazosin [From Cardura] Adverse Reaction (Intermediate, Verified 04/29/22 16:42) Vasovagal/lightheaded Medications See EMR [facility] Medical History BMI 34.0-34.9,adult Essential (primary) hypertension GERD (gastroesophageal reflux disease) Left ventricular hypertrophy Lightheadedness Non-ischemic cardiomyopathy Obesity Obstructive sleep apnea Palpitations Paroxysmal atrial fibrillation Vasovagal syncope Surgical History History of arthroscopic knee surgery History of cataract surgery History of vasectomy Hx of cholecystectomy Family History Mother Hypertension Diabetes CancerFather Hypotension Social History Smoking Status: Never smoker alcohol intake: never substance use type: does not use caffeine: No ROS Const Const: Negative for fatigue, weakness, fever(s), headache(s), chills, frequent falls, weight gain or weight loss Eyes Eyes: Negative for blind spots, loss of peripheral vision, transient loss of vision, blurry vision, change in vision, double vision, floaters or tunnel vision ENT ENT: Positive for dizziness (with positional changes); Negative for headache(s), Nosebleed/epistaxis, balance problems or neck pain Cardio Chest Pain: No Palpitations: Yes Edema: None Muscle aches with walking: None Resp Respiratory: Positive for SOB with activity (with over exertion); Negative for SOB at rest or SOB orthopnea\SOB lying down GI GI: Negative nausea, vomiting, heartburn, bloating, vomiting blood/hematemesis, bright, red blood in stools or black,tarry stools Musc Musc: Negative for muscle aches/ myalgia, muscle weakness, joint pain or balance problems Neuro Neuro: Positive for dizziness (with positional changes); Negative for lightheadedness, near syncope, syncope, orthostatic symptoms, frequent falls, headache(s), weakness, blurry vision or double vision [place] Hematologic/Lymphatic: Negative for easy bleeding or easy bruising Endo Endo: Negative for fatigue Cardiology Exam Const Appearance: cooperative, healthy appearing, no acute distress, well developed and well groomed Nutritional Appearance: obese body habitus, well nourished Orientation: alert, awake and oriented x3 Head Head: normal to inspection, normocephalic and atraumatic Ears: hearing grossly normal bilaterally and external ears normal Nose: external nose normal Face and Sinus: face symmetric Eyes General: appearance normal, both eyes and all related structures Eyelids: eyelids normal Conjunctivae: conjunctivae normal Pupils: PERRL EOM: EOM intact bilaterally Neck Neck: normal visual inspection, trachea midline and no JVD JVD: +5 Carotids: normal carotid upstroke and bounding pulses Chest Chest inspection: normal inspection of the chest, symmetric chest movement and normal respiratory effort Auscultation: Bilateral: Clear to Auscultation Cardio Palpation: normal PMI Rate: regular rate Rhythm: regular rhythm Heart sounds: S1 normal, S2 normal and normal, physiologic split S2; Negative rub, gallop or murmur GI GI: normal to inspection Neuro General: patient alert, patient awake, patient oriented x3, gait normal, moves all extremities and no focal sensory deficit Skin Skin: no rashes or lesions noted Extremities Pulses: Normal: Right Posterior Tibial Pulse, Left Posterior Tibial Pulse, Right Radial Pulse and Left Radial Pulse Lower Extremity Edema: None: Bilateral Musculoskel Musculoskeletal: No joint tenderness Psych Psychological: normal affect Supplemental Info Supplemental Information Echocardiogram 11/23/2021: Interpretation Summary Normal LV size. Left ventricular systolic function is normal. The estimated ejection fraction is 65 %. Normal diastology for age. ? Echocardiogram 09/13/2017: Interpretation Summary Normal LV size. Moderate concentric left ventricular hypertrophy. Mild global left ventricular systolic dysfunction. The estimated ejection fraction is 45 %. Unable to assess diastolic dysfunction due to arrhythmia. Assessment and Plan Assessment and Plan (1) Paroxysmal atrial fibrillation: Status: Chronic Plan: Patient has a history of paroxysmal atrial fibrillation. He will proceeded with cardioversion. (2) Non-ischemic cardiomyopathy: Status: Chronic Plan: Patient has a history of non-ischemic cardiomyopathy. His most recent echocardiogram from 11/2021 demonstrated an improved ejection fraction of 65%. He appears stable at this time, and denies any recent symptoms or events. He will continue with his current medical therapy, along with monitoring for any concerning symptoms. (3) Essential (primary) hypertension: Status: Chronic Plan: Patient has a history of hypertension. His blood pressure is well controlled at this time. He does acknowledge dizziness. He will be asked to hold his spironolactone. He will continue lisinopril 5mg daily, and diltiazem 180mg twice daily. He will monitor his blood pressures at home, and notify our office of readings in 2 weeks. If deemed appropriate, we may need to increase his lisinopril dose. (4) Dizziness: Status: Acute Plan: He completed carotid duplex ultrasound in April 2022 that showed bilateral, mild internal carotid artery stenosis.
[2022-09-28 12:52] VITALS: BMI 36.3
== END | disposition home or self-care (01) ==
PROVIDERS: PCP Internal Medicine; Referring Provider Internal Medicine Cardiovascular Disease; Visit Provider Internal Medicine Cardiovascular Disease
DX: I48.0 Paroxysmal atrial fibrillation (principal); I42.8 Other cardiomyopathies; I10 Essential (primary) hypertension; R42 Dizziness and giddiness; G47.33 Obstructive sleep apnea (adult) (pediatric); Z79.899 Other long term (current) drug therapy; K21.9 Gastro-esophageal reflux disease without esophagitis; Z79.01 Long term (current) use of anticoagulants
CPT/HCPCS: 93005

== ENCOUNTER → 2022-11-10 | Outpatient (CLI) | payer OTHER, SELFPAY ==
[2022-11-10 09:18] LABS: PSA,Total- Diagnostic 1.91 ng/mL (0.0-4.0)
== END | disposition home or self-care (01) ==
LOC: LAB 08:11
PROVIDERS: PCP Internal Medicine; Referring Provider Urology; Visit Provider Urology
DX: R97.20 Elevated prostate specific antigen [PSA] (principal)
CPT/HCPCS: 36415; 84153

== ENCOUNTER → 2023-11-13 | Outpatient (CLI) | payer OTHER, SELFPAY ==
[2023-11-13 09:38] LABS: PSA,Total- Diagnostic 1.61 ng/mL (0.0-4.0)
== END | disposition home or self-care (01) ==
LOC: LAB 08:21
PROVIDERS: PCP Internal Medicine; Referring Provider Urology; Visit Provider Urology
DX: R97.20 Elevated prostate specific antigen [PSA] (principal)
CPT/HCPCS: 36415; 84153

== ENCOUNTER → 2024-04-23 | Outpatient (CLI) | payer OTHER, SELFPAY ==
--- NOTE | 2024-04-23 17:04 | RAD_ITS ---
PROCEDURE: CHEST PA AND LATERAL REASON FOR EXAM: 2 days of wheezing and cough. Post influenza. TECHNIQUE: Frontal and lateral chest. COMPARISON: 09/27/2022. FINDINGS: Lungs are clear of pneumonia and congestion. No pleural effusions, thickening, or pneumothorax. Heart and mediastinum are normal. Great vessels unremarkable. No hilar masses. Bones and soft tissues are unremarkable. RAD/Chest PA and Lateral IMPRESSION: No active cardiopulmonary disease. Reading Location: [facility]
== END | disposition home or self-care (01) ==
PROVIDERS: PCP Internal Medicine; Referring Provider Nurse Practitioner; Visit Provider Nurse Practitioner
DX: R05.1 Acute cough (principal)
CPT/HCPCS: 71046

== ENCOUNTER → 2024-10-11 | Outpatient (CLI) | payer OTHER, SELFPAY | END | disposition home or self-care (01) | LOC: SL 11:07 | PROVIDERS: PCP Internal Medicine; Visit Provider Internal Medicine | DX: Z00.00 Encounter for general adult medical examination without abnormal findings (principal) ==

== ENCOUNTER → 2025-02-04 | Outpatient (CLI) | payer OTHER, SELFPAY ==
[2025-02-04 16:55] LABS: PSA,Total- Diagnostic 1.83 ng/mL (0.00-4.00)
== END | disposition home or self-care (01) ==
LOC: LAB 15:34
PROVIDERS: PCP Internal Medicine; Referring Provider Urology; Visit Provider Urology
DX: R97.20 Elevated prostate specific antigen [PSA] (principal)
CPT/HCPCS: 36415; 84153